=== PATIENT | male | born 1970 | race Caucasian/White ===

== ENCOUNTER 2023-11-13 13:20 | Inpatient (IN) | payer OTHER, SELFPAY ==
[2023-11-13] VITALS (12 sets, daily range): BP systolic 121–146; BP diastolic 68–100; BMI 34.1
[2023-11-13 07:35] LABS: % Basophils 0.9 % (0-2); % Eosinophils 4.4 % (0-6); % Monocytes 7.7 % (1.7-9.3); Absolute Basophils 0.1 10^3/uL (0-0.2); Absolute Eosinophils 0.6 10^3/uL (0-0.7); Absolute Immature Granulocytes 0.1 10^3/uL (0-0.05); Absolute Lymphocytes 2.2 10^3/uL (1.2-3.4); Absolute Neutrophils 8.5 10^3/uL (1.4-6.5); Hematocrit 35.2 % (39.0-52.0); Hemoglobin 11.8 g/dL (13.0-18.0); Mean Corp Hgb Conc. 33.5 g/dL (33.0-37.0); Mean Corpuscular Hgb 26.4 pg (27.0-31.0); Mean Corpuscular Volume 78.7 fL (80.0-94.0); Nucleated Red Blood Cells % 0 % (-); Platelet Count 540 10^3/uL (130-400); Red Blood Cell Count 4.47 10^6/uL (4.70-6.10); Red Cell Dist. Width 12.3 % (11.5-14.5); White Blood Cell Count 12.5 10^3/uL (4.8-10.8)
[2023-11-13 08:07] LABS: ALT (SGPT) 17 U/L (0-50); AST (SGOT) 17 U/L (17-59); Alkaline Phosphatase 124 U/L (38-126); Blood Urea Nitrogen 28 mg/dl (9-20); Calcium 9.5 mg/dl (8.4-10.2); Carbon Dioxide 21 mmol/L (22-30); Chloride 96 mmol/L (98-107); Glucose 563 mg/dl (70-99); Potassium 4.5 mmol/L (3.5-5.1); Sodium 129 mmol/L (135-145); Total Bilirubin 0.8 mg/dl (0.2-1.3); Total Protein 7.5 g/dl (6.3-8.2); eGFR > 60.00
--- NOTE | 2023-11-13 09:00 | ED.GENMED ---
History of Present Illness
General
Chief Complaint: Skin Problem
Source: patient
Time Seen by Provider: 11/13/23 08:45
Travel History
Have you had any contact with someone who has COVID-19?: No
Do you have any symptoms of coronavirus? Fever > 100 degrees, chills, cough, shortness of breath, sore throat, loss of taste or smell, muscle aches, or headache?: No
History of Present Illness
History of Present Illness:
53-year-old male with past medical history of hypertension, hyperlipidemia, insulin-dependent diabetes, diabetic neuropathy presenting to the emergency department for evaluation of a right foot infection that he states started last week, notes that
due to loss of his job and insurance he has not been able to most of his medications that he knows he should be taking but states he had limited funds to pay for these medications. States that over the last week he started to feel generally unwell
noting discharge and erythema over the foot but notes due to neuropathy he is not having much pain. He admits to polyuria and polydipsia. Denies any known fevers, chills or rigors. States that the foot looks similar to when he needed an
amputation of the great toe around 1 year ago here at this facility.
Past History
Past History
ED Past Medical History: HTN, Hypercholesterolemia and IDDM
ED Past Surgical History: Other
Social History
Tobacco: Non-smoker
Alcohol: Occasional
Drug: None
Personal:
Living: with family
Employment: Employed
Family History
Family History: Other
Review of Systems
Review of Systems
All Other Systems: ROS reviewed and negative except as documented in HPI and ROS
Phy Exam
Physical Exam
Physical Exam:
GENERAL: Alert , in no apparent distress
EYE: Clear conjunctiva
NECK: Supple
ENT: o/p clr, mmm.
CARDIAC: Regular rate and rhythm .
LUNGS: Clear breath sounds bilaterally, no acute respiratory distress, no wheezes/rales/rhonchi
NEUROLOGICAL: Alert and oriented
SKIN: Warm and dry, significant diabetic foot ulcer along the plantar surface of the foot overlying the second distal metatarsal with surrounding erythema, fluctuance, significant malodor and warmth. Erythema extends along the dorsal surface of the
foot overlying the distal second third and fourth metatarsal with skin breakdown. 2-3 eschars over the plantar surface of the foot within the second and fourth metatarsal as well
MUSCULOSKELETAL: Bilateral edema
PSYCH: Normal and appropriate interaction.
Scores
Heart Failure Risk
Heart Failure Risk Score: Not Applicable
Heart Score for Chest Pain Patients
STEMI patient?: Not applicable
Withdrawal Assessment of Alcohol
Withdrawal Assessment Completed?: Not applicable
Course
Orders/Labs/Results
Orders:
Orders
11/13/23 07:21
C-Reactive Protein Urgent
Comment: ADD
Complete Blood Count/With Diff Urgent
Comprehensive Metabolic Panel Urgent
Erythrocyte Sed Rate Urgent
Comment: ADD
11/13/23 08:49
Add On- LAB Urgent
Tests Added?: esr,crp
0.9% Sodium Chloride 1000 ml [Nss] 1,000 ml IV BOLUS
CR Foot - Right Min 3 Views Urgent
Comment:
Reason For Exam: diabetic foot wound
11/13/23 08:54
Insulin Aspart [NOVOLOG vial] 11 units SC NOW STA
11/13/23 08:58
Piperacillin/Tazo 3.375 Gram [Zosyn] 3.375 gram in 50 ml IV NOW
11/13/23 09:28
Hemoglobin A1c [Glycohemoglobin (HgbA1c)] Urgent
Lactic Acid Q4H
Comment: CANCEL 2nd LACTIC ACID IF 1st LACTIC ACID IS LESS THAN 2
Blood Culture Q30M
SHAYLEE Source: Blood/Venous
Specimen Description:
11/13/23 09:38
Blood Culture Q30M
SHAYLEE Source: Blood/Venous
Specimen Description:
11/13/23 11:22
Vancomycin [Vancocin] 2,000 mg 0.9% Sodium Chloride 500 ml [Nss] 500 ml IV NOW
Abnormal Lab Results
11/13/23
07:21
WBC 12.5 H 10^3/uL
(4.8-10.8)
RBC 4.47 L 10^6/uL
(4.70-6.10)
Hgb 11.8 L g/dL
(13.0-18.0)
Hct 35.2 L %
(39.0-52.0)
MCV 78.7 L fL
(80.0-94.0)
MCH 26.4 L pg
(27.0-31.0)
Plt Count 540 H 10^3/uL
(130-400)
Abs Immat Gran (auto) 0.1 H 10^3/uL
(0-0.05)
Absolute Neuts (auto) 8.5 H 10^3/uL
(1.4-6.5)
Absolute Monos (auto) 1.0 H 10^3/uL
(0.1-0.6)
Immature Gran % 1.0 H %
(0-0.5)
Lymphocytes % 18.0 L %
(20.5-51.1)
ESR 131 H mm/hour
(0-20)
Sodium 129 L mmol/L
(135-145)
Chloride 96 L mmol/L
(98-107)
Carbon Dioxide 21 L mmol/L
(22-30)
BUN 28 H mg/dl
(9-20)
Glucose 563 H* mg/dl
(70-99)
C-Reactive Protein 74.80 H mg/L
(0.0-10.00)
11/13/23 07:21
11/13/23 07:21
Vital Signs
Initial and Last Documented VS:
Initial Vital Signs
Temp Pulse Resp BP Pulse Ox
98.4 F 97 16 133/91 97
11/13/23 07:10 11/13/23 07:10 11/13/23 07:10 11/13/23 07:10 11/13/23 07:10
Last Documented Vital Signs
Temp Pulse Resp BP Pulse Ox
98.4 F 98 20 138/92 96
11/13/23 07:10 11/13/23 10:45 11/13/23 10:45 11/13/23 10:00 11/13/23 10:45
MDM/Problems Addressed
Differential Diagnosis Includes:
Diabetic foot ulcer, osteomyelitis, cellulitis, diabetic neuropathy, uncontrolled diabetes
MDM/Problems Addressed:
53-year-old male present emergency department with known diabetic foot ulcer, states worse over the last week. There is significant erythema, edema, fluctuance and warmth. Clinical concern for osteomyelitis. Unfortunately due to patient's lack of
insurance he has not been able take almost all of his medications. Lab work was initiated in triage which reveals a leukocytosis. There is mild hyponatremia which when corrected for hyperglycemia is within normal limits. Patient's glucose
significantly elevated at 563. Will treat hyperglycemia with fluids and insulin. Added on inflammatory markers, lactic acid and blood cultures as well as a hemoglobin A1c for inpatient team. Broad-spectrum vancomycin and Zosyn ordered for
antibiotics. X-ray ordered. Plan to admit with notifying podiatry
Chronic conditions affecting care: DM
Acute Exacerbation and/or Progression of Chronic Illness: DM
*Radiology
Radiology exam reviewed: preliminary read by ED provider (Questionable osteo within the phalanx of the second toe)
*Pulse Oximetry
Patient hypoxic: no
*Critical Care Note
Total Time (30-74mins, 75-104mins- exclusive of procedures): Not Applicable
Data Reviewed
Review of Other/Old Records Reveals: Labs, Records and Discharge Summary
Source: patient and records
Patient Management
Discussion with other providers: Hospitalist and [employer]
Escalation/DeEscalation of care consider admission/obs:
Hospitalist team accepts for continued evaluation and treatment. Podiatry team was notified and will consult on the patient.
ED Attending Note
-
Portions of this chart may have been created with voice recognition software.� Occasional wrong word or��sound alike� substitutions may have occurred due to the inherent limitations of voice recognition software.
Discharge Plan
Departure
Patient Disposition: Admit
Date of Disposition: 11/13/23
Time of Disposition: 09:09
Presentation/result/management discussed w/ accepting MD/DO: Hospitalist
Discharge Problem:
Diabetic foot ulcer with osteomyelitis, Diabetes mellitus with hyperglycemia, Noncompliance with medication regimen
Prescriptions:
No Action
atorvastatin 20 mg Tablet
20 mg PO HS
Patient Comments:
11/13/2023, last filled on 05/09/2023 for 90-day supply.
metformin 1,000 mg Tablet
1,000 mg PO BID
Patient Comments:
11/13/2023, last filled on 05/03/2023 for 90-day supply.
ibuprofen [Advil] 200 mg Tablet
600 mg PO DAILYPRN PRN (Reason: mild pain)
lisinopril 5 mg Tablet
5 mg PO DAILY
Patient Comments:
11/13/2023, last filled on 05/03/2023 for 90-day supply.
insulin aspart U-100 [Novolog FlexPen U-100 Insulin] 100 unit/mL (3 mL) Insulin Pen
20 unit SC BID
Patient Comments:
11/13/2023, [facility] records are from 06/30/2022 and this med. is not in pharmacy fill data.
Levemir U-100 Insulin 100 unit/mL Solution
40 unit SC BID
Theragen Tablet
1 tab PO DAILY
Interventions
Interventions:
*Risk Screen - Suicide Last Done: 11/13/23 10:23
*General Assessment Last Done: 11/13/23 10:23
*Neglect/Abuse Screening Last Done: 11/13/23 10:23
ED- Fall Risk Assessment Last Done: 11/13/23 10:23
*ED COVID-19 Vaccine History Last Done: 11/13/23 07:10
ED-Skin Assessment Last Done: 11/13/23 10:23
Discharge Date and Time
Print Language: MOROCCAN
[2023-11-13] MEDS: NOVOLOG vial 11 UNITS SC (09:40)
[2023-11-13] MEDS: NSS 1000 IV (09:40)
[2023-11-13] MEDS: ZOSYN 50 IV ×2 (09:40→18:56)
[2023-11-13 10:05] LABS: Lactic Acid 1.3 mmol/L (0.7-2.0)
--- NOTE | 2023-11-13 10:06 | PHANOTE ---
11/13/2023, med rec tech, spoke to pt. to obtain their med. history; pt. has filled many of his prescriptions in April 2023 for 90-day supplies and [facility] records are from 06/30/2022; pt. states to be taking Novolog Flexpen Insulin 20 units BID but
I was unable to confirm this med. as it is not in pharmacy fill and [facility] records are outdated.
[2023-11-13 11:24] LABS: Erythrocyte Sed Rate 131 mm/hour (0-20)
[2023-11-13] MEDS: VANCOCIN 540 MG IV (11:34)
[2023-11-13 12:16] LABS: Glycohemoglobin (HgbA1c) 16.4 % (4.0-5.6)
--- NOTE | 2023-11-13 13:08 | HPS.HSE ---
Family Physician
-
Family Physician: * NONE
Chief Complaint
-
Right foot infection
History of Present Illness
Patient with a longstanding history of diabetes and prior right big toe amputation from diabetic foot infection presents again with right foot infection.
He has had right foot wound on the plantar aspect for some time/few months but has not been able to get care because of loss of job and insurance. Last Monday he realized he was in trouble with the right foot. He started to have swelling, some
pain now [he has neuropathy and not much pain sensation in both feet]. He also started to have fever and chills with soaking sweats last week. He started to have drainage from his right leg which was odorous.
With the loss of job and insurance he was sparingly using insulin. He was rationing his insulin to last longer . He takes Levemir 40 units twice a day and NovoLog 20 units twice a day.
Medical History
Past Medical History
Past Medical History: Reports Hypercholesterolemia and IDDM; Denies CAD or CVA
Past Surgical History: Reports Other (rt big toe amputation)
Additional Past Surgical History:
rt big toe amputation
Social History
Tobacco: Non-smoker
Alcohol: Occasional
Drug: None
Living: With Family
Family History
Family History: Not pertinent
Allergies / Home Medications
Allergies reflects when Allergies were last updated in [employer].
Home Medications with original date entered in [employer]
Allergy/Medication List:
Allergies
Allergy/AdvReac Type Severity Reaction Status Date / Time
No Known Allergies Allergy Verified 11/13/23 07:12
Home Medications
atorvastatin 20 mg tablet 20 mg PO HS 11/13/23
ibuprofen 200 mg tablet (Advil) 600 mg PO DAILYPRN PRN mild pain 11/13/23
insulin aspart U-100 100 unit/mL (3 mL) subcutaneous pen (Novolog FlexPen U-100 Insulin aspart) 20 unit SC BID 11/13/23
insulin detemir U-100 100 unit/mL subcutaneous solution (Levemir U-100 Insulin) 40 unit SC BID 11/13/23
lisinopril 5 mg tablet 5 mg PO DAILY 11/13/23
metformin 1,000 mg tablet 1,000 mg PO BID 11/13/23
therapeutic multivitamin 1 tab PO DAILY 11/13/23
Review of Systems
-
A 12 point ROS was completed and negative except as noted: Yes
Physical Exam
Vital Signs
Vital Signs
Temp Pulse Resp BP Pulse Ox
98.4 F 98 20 138/92 96
11/13/23 07:10 11/13/23 10:45 11/13/23 10:45 11/13/23 10:00 11/13/23 10:45
Physical Exam
General: No Apparent Distress
HEENT: Moist mucous membranes
Respiratory: Clear
Cardiac: S1/S2 and Regular Rhythm
GI: Soft, Non Tender, Non Distended and Normal Bowel Sounds
Skin: Other (rt foot is swollen and red; open wound on plantar aspect over the medial forefoot . Very malodorous drainage .)
Neuro: AO x 3 and Nonfocal/grossly intact
Psych: Calm
Laboratory Results
-
11/13/23 07:21
11/13/23 07:21
Laboratory Results
Lactic Acid Cancelled 11/13/23 13:00
Total Bilirubin 0.8 mg/dl (0.2-1.3) 11/13/23 07:21
AST 17 U/L (17-59) 11/13/23 07:21
ALT 17 U/L (0-50) 11/13/23 07:21
Alkaline Phosphatase 124 U/L (38-126) 11/13/23 07:21
Data Reviewed
-
Lab Data: Labs Reviewed by me
Impression/Plan
-
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 Concerned about significant soft tissue involvement. Patient also with poor glycemic control with
hemoglobin A1c 16.4.
Admit to hospital.
Obtain an MRI of the foot with contrast.
Start on empirical antibiotics.
Consult ID and cabin man.
Poorly controlled diabetes-hemoglobin A1c 16.4. Patient states he lost insurance about coverage. Restart his home doses of insulin. Start on sliding scale. He states his insurance is kicking in today so he does not need any case management help
for now. Hold metformin. Patient states he is on lisinopril for more kidney protection than hypertension.
Hyperlipidemia-continue with his statins.
[2023-11-13 15:32] LABS: Glucose - Point of Care 336 mg/dl (70-99)
--- NOTE | 2023-11-13 18:24 | CON.MD ---
Consultation - Medical
-
CC/History of Present Illness:
Podiatry consulted for right foot infection
Patient relates a history of diabetes with neuropathy. He underwent a right big toe amputation from diabetic foot infection 06/24/22. He did not follow up with Dr. Kapoor post op due to lack of insurance.
He has had right foot wound on the plantar aspect for several months but has not been able to get care because of loss of job and insurance. He has not been taking insulin as prescribed due to financial difficulty. He states he has been cleaning
it at home but not doing any specific wound care. Last Monday he noticed increased redness, swelling and drainage and odor from the foot. He also had fever, chills and night sweats last week. He presented to the ER today for evaluation
Past Medical History
Past Medical History: Reports Hypercholesterolemia and IDDM; Denies CAD or CVA
Past Surgical History: Reports Other (rt big toe amputation)
Additional Past Surgical History:
rt big toe amputation
Social History
Tobacco: Non-smoker
Alcohol: Occasional
Drug: None
Living: With Family
Family History
Family History: Not pertinent
Allergies
Allergy/AdvReac Type Severity Reaction Status Date / Time
No Known Allergies Allergy Verified 11/13/23 07:12
Home Medications
atorvastatin 20 mg tablet 20 mg PO HS 11/13/23
ibuprofen 200 mg tablet (Advil) 600 mg PO DAILYPRN PRN mild pain 11/13/23
insulin aspart U-100 100 unit/mL (3 mL) subcutaneous pen (Novolog FlexPen U-100 Insulin aspart) 20 unit SC BID 11/13/23
insulin detemir U-100 100 unit/mL subcutaneous solution (Levemir U-100 Insulin) 40 unit SC BID 11/13/23
lisinopril 5 mg tablet 5 mg PO DAILY 11/13/23
metformin 1,000 mg tablet 1,000 mg PO BID 11/13/23
therapeutic multivitamin 1 tab PO DAILY 11/13/23
Vital Signs
Temp Pulse Resp BP Pulse Ox
98.4 F 98 20 138/92 96
11/13/23 07:10 11/13/23 10:45 11/13/23 10:45 11/13/23 10:00 11/13/23 10:45
Physical Exam
Right foot with palpable pulses, CFT WNL. Generalized edema about the forefoot with associated erythema that seems to be localized about the 2nd mpj and extends tot he midfoot. There is a large neurotrophic ulcer in the submet 2 area that is
necrotic. It probes directly tot the 2nd MPJ. There are three wound dorsally at the medial base of the second toe and along the dorsal 2nd metatarsal. All wound are open, fibronecrotic and communicate. purulent and non viable tissue is expressed
from the site. the emphysema visualized on x-ray communicates directly with the open wounds on the dorsal foot.
Xrays: Extensive soft tissue edema and subcutaneous emphysema within the forefoot with subtle cortical irregularities involving the second metatarsal head and proximal second phalanx. Findings aren't definitive but suspicious for underlying
osteomyelitis.
HbA1c = 16.4
WBC = 12.5
Laboratory Results
Lactic Acid Cancelled 11/13/23 13:00
Total Bilirubin 0.8 mg/dl (0.2-1.3) 11/13/23 07:21
AST 17 U/L (17-59) 11/13/23 07:21
ALT 17 U/L (0-50) 11/13/23 07:21
Alkaline Phosphatase 124 U/L (38-126) 11/13/23 07:21
Impression:
Type 2 Diabetes with Neuropathy
Right foot infection with likely osteomyelitis
Plan:
He is evaluated at bedside. Labs and studies evaluated.
A bedside I&D is performed and the wound are flushed and packed with iodoform packing
Wound cultures taken and pending
Plan to begin dakins flush tomorrow
Await results of MRI of the foot with contrast.
Suspect that patient will require a TMA - likelihood of surgery and amputation was discussed with him in detail
Antibiotics given - Vanco/Zosyn
Consult ID
[2023-11-13] MEDS: NOVOLOG FLEXPEN-MODERATE RESISTANCE 7 UNITS SC (18:53)
[2023-11-13 18:54] LABS: Glucose - Point of Care 328 mg/dl (70-99)
[2023-11-13] MEDS: LOVENOX 40 MG SC (18:56)
[2023-11-13] MEDS: ZESTRIL 5 MG PO (18:56)
--- NOTE | 2023-11-13 19:37 | PHA.VAN.IN ---
Assessment
- Assessment
Renal Function: Appears elevated from baseline (06/26/22 BASELINE SCR: 0.9)
Concomitant Antimicrobials: ZOSYN
- Previous Dosing Experience
Previous Regimen: 1500MG IV Q12H
Date of Regimen: 05/11/22
Provided Trough of: 12 PREDICTED
Provided AUC of: 474 PREDICTED
Patient's SCR is: Elevated compared to previous dosing experience (05/11/22 SCR = 0.9)
Patient's weight is: Decreased compared to previous dosing experience (05/11/22 WT = 128.6 KG)
AUC Dosing Plan
- Dosing Variables
Dosing Weight (kg): 117.2
Dosing CrCl (ml/min): 95
Vd coefficient (L/kg): 0.6
- Empiric Dosing
Initial / Loading Dose: 2GM
Maintenance Regimen: 1500MG IV Q12H
Estimated AUC (mcg*h/mL): 545
Estimated Peak (mcg*h/mL): 33.8
Estimated Trough (mcg/ml): 14.1
Estimated Half Life (H): 8.3
Pharmacokinetics Vancomycin I
- -
Patient Age: 53
Patient Sex: Male
Vancomycin Day #: 1
Indication: Skin And Soft Tissue (DIABETIC FOOT )
Requesting Provider: JARRETT
Height / Weight:
Height 6 ft 1 in
Actual Weight 117.2 kg
Pertinent Past Medical History: UNCONTROLLED DM A1C = 16
- Vital Signs / Lab Results
Temp Pulse Resp BP Pulse Ox
99.8 F 104 13 146/92 93
11/13/23 15:31 11/13/23 18:56 11/13/23 18:00 11/13/23 18:56 11/13/23 18:18
Lab Results - Hematology
11/13/23
07:21
WBC 12.5 H
Lab Results - Chemistry
11/13/23
07:21
BUN 28 H
Creatinine 1.2
Albumin 4.0
11/13/23 11/13/23
09:28 13:00
Lactic Acid 1.3 Cancelled
[2023-11-13 21:53] LABS: Glucose - Point of Care 444 mg/dl (70-99)
[2023-11-13] MEDS: LIPITOR 20 MG PO (21:58)
[2023-11-13] MEDS: LEVEMIR 0.400000000000000022 UNITS SC (21:58)
[2023-11-13 22:19] LABS: Glucose 393 mg/dl (70-99)
[2023-11-14] VITALS (7 sets, daily range): BP systolic 111–143; BP diastolic 69–101; BMI 34.0
[2023-11-14] MEDS: ZOSYN 50 IV ×4 (00:26→19:06)
[2023-11-14 05:04] LABS: Hemoglobin 10.7 g/dL (13.0-18.0); Mean Corp Hgb Conc. 34.5 g/dL (33.0-37.0); Mean Corpuscular Hgb 26.8 pg (27.0-31.0); Mean Corpuscular Volume 77.5 fL (80.0-94.0); Mean Platelet Volume 8.5 fL (7.4-10.4); Platelet Count 559 10^3/uL (130-400); Red Cell Dist. Width 12.5 % (11.5-14.5); White Blood Cell Count 10.7 10^3/uL (4.8-10.8)
[2023-11-14 05:22] LABS: Blood Urea Nitrogen 23 mg/dl (9-20); Calcium 9.2 mg/dl (8.4-10.2); Carbon Dioxide 19 mmol/L (22-30); Chloride 101 mmol/L (98-107); Estimated Creatinine Clearance 104 ml/min; Glucose 327 mg/dl (70-99); Potassium 4.5 mmol/L (3.5-5.1); Sodium 132 mmol/L (135-145); eGFR > 60.00
[2023-11-14] MEDS: VANCOCIN 300 ML IV ×2 (07:21→17:31)
[2023-11-14] MEDS: VANCOCIN 300 MG IV ×2 (07:21→17:31)
[2023-11-14] MEDS: ZESTRIL 5 MG PO (08:03)
[2023-11-14] MEDS: THERAGRAN 1 TABLET PO (08:03)
[2023-11-14 08:17] LABS: Glucose - Point of Care 353 mg/dl (70-99)
[2023-11-14] MEDS: NOVOLOG FLEXPEN-MODERATE RESISTANCE 9 UNITS SC (08:19)
[2023-11-14] MEDS: LEVEMIR 0.400000000000000022 UNITS SC ×2 (08:33→21:06)
[2023-11-14] MEDS: DAKIN'S SOLUTION 0.25% 1/2 STRENGTH TOPICAL (09:27)
--- NOTE | 2023-11-14 10:21 | CM ---
CM met with patient in room. CM confirmed that patient's insurance [employer] is active as of 11/12. Patient has had a history of VN with [facility]. Patient does not have a history of SNF and no DME in the home. Patient does NOT have a PCP at this time. CM
offered assistance. Patient stated that he will call his insurance to see who is in network. Patient uses [facility] for medications.
PLAN: Home
--- NOTE | 2023-11-14 10:53 | PHA.VAN.FU ---
Vancomycin Assessment / Plan
- Assessment
Renal Function: Stable
WBC's are: Trending Down
In the past 24 hrs, patient has been: Afebrile
Concomitant Antimicrobials: piperacillin/tazobactam
- Dosing Plan
Continue: Vanc 1500mg Q12H
Dosing Comments: BUN / SCR trending down
- Monitoring Plan
No level(s) ordered at this time: consider levels in next few days
Monitoring Comments: follow renal function
- Follow Up
Pharmacy will continue to follow.
Vancomycin Follow UP
- -
Patient Age: 53
Patient Sex: Male
Vancomycin Day #: 2
Indication: Skin And Soft Tissue
Requesting Provider: Dr. Solorzano
Pertinent Antimicrobial Allergies:
NKDA
Height / Weight:
Height 6 ft 1 in
Actual Weight 117.2 kg
Pertinent Past Medical History: BMI ~34, DM
- Vital Signs / Lab Results
Temp Pulse Resp BP Pulse Ox
99.5 F 89 18 118/69 95
11/13/23 20:18 11/14/23 08:03 11/14/23 08:00 11/14/23 08:03 11/14/23 08:00
Lab Results - Hematology
11/13/23 11/14/23
07:21 04:51
WBC 12.5 H 10.7
Lab Results - Chemistry
11/13/23 11/14/23
07:21 04:51
BUN 28 H 23 H
Creatinine 1.2 1.1
Estimated Creat Clear 104
Albumin 4.0
11/13/23 11/13/23
09:28 13:00
Lactic Acid 1.3 Cancelled
Microbiology Results
11/13/23 09:28 Blood Culture - Preliminary
Blood/Venous No Growth in 24 hours- Final report to follow
11/13/23 09:38 Blood Culture - Preliminary
Blood/Venous No Growth in 24 hours- Final report to follow
11/13/23 19:24 Gram Stain - Preliminary
Foot - Right
[2023-11-14 10:55] LABS: Glucose - Point of Care 277 mg/dl (70-99)
[2023-11-14] MEDS: NOVOLOG FLEXPEN-MODERATE RESISTANCE 5 UNITS SC (11:07)
--- NOTE | 2023-11-14 11:39 | CON.ID ---
Consultation
-
Date/Time Consultation Requested: November 13, 2023, 173
Date/Time Consultation Performed: November 14, 2023, 1141
Requesting Provider: Dr. Terrell Solorzano
Performing Provider: Dr. Rose Marie España
Reason for Consultation: Diabetic foot infection
Chief Complaint / Past History
Chief Complaint
Infected toe wound
History of Present Illness
53 year old male with uncontrolled DM, neuropathy, who is currently noncompliant with meds and medical visits due to loss of insurance. He developed wound on second toe several months ago. Last week he was in [place] and walked a lot. He noted the
2nd toe started to become swollen and red. He had subjective fevers, chills, and sweats. The wound smelled bad. He therefore came to ED 11/12. WBC 12.5. A1c 16.4. MRI shows osteo and abscess of second toe. No other complaints.
Past History
Additional Past Medical History:
DM2
Neuropathy
HTN
HLD
depression
Right great toe amputation
Allergy History:
No Known Allergies Allergy (Verified 11/13/23 07:12)
Medications Reviewed: Yes
Current Antibiotics:
Vancomycin
Zosyn
Social History
Tobacco: Non-Smoker
Alcohol: Occasional
Drug: None
Family History
Family History: Not Pertinent
Review of Systems
Review of Systems
General: Negative Change in Appetite
HEENT: Negative Sinus Problems, Headache or Pharyngitis
Cardiovascular: Negative Chest Pain
Respiratory: Negative Dyspnea or Cough
Gasteroenterology: Other (no diarrhea); Negative Nausea or Vomiting
Genital / Urological: Negative Dysuria or Flank Pain
Endocrine: Negative Weakness
Neurological: Negative Headache or Dizziness
All systems: All other systems were reviewed and were negative
Vital Signs
Temp Pulse Resp BP Pulse Ox
99.5 F 89 18 118/69 95
11/13/23 20:18 11/14/23 08:03 11/14/23 08:00 11/14/23 08:03 11/14/23 08:00
Physical Exam
Physical Exam
Constitutional: No Acute Distress, Comfortable and Obese
Eyes: No Conjunctival Hemorrhage and Sclera Anicteric
Cardiovascular: Regular Rate and S1/S2
Pulmonary: Clear
Gastrointestinal: Soft, Non Tender, Non Distended and Normal Bowel Sounds
Wound: Other (right foot 1+ edema, + erythema forefoot more localized to send toe, medial and plantar wounds with packing in place)
Lab / Diagnostic Study Results
11/14/23 04:51
11/14/23 04:51
Abs Immat Gran (auto) 0.1 10^3/uL (0-0.05) H 11/13/23 07:21
Absolute Neuts (auto) 8.5 10^3/uL (1.4-6.5) H 11/13/23 07:21
Absolute Lymphs (auto) 2.2 10^3/uL (1.2-3.4) 11/13/23 07:21
Absolute Monos (auto) 1.0 10^3/uL (0.1-0.6) H 11/13/23 07:21
Absolute Basos (auto) 0.1 10^3/uL (0-0.2) 11/13/23 07:21
Immature Gran % 1.0 % (0-0.5) H 11/13/23 07:21
Neutrophils % 68.0 % (42.2-75.2) 11/13/23 07:21
Lymphocytes % 18.0 % (20.5-51.1) L 11/13/23 07:21
Monocytes % 7.7 % (1.7-9.3) 11/13/23 07:21
Eosinophils % 4.4 % (0-6) 11/13/23 07:21
Basophils % 0.9 % (0-2) 11/13/23 07:21
ESR 131 mm/hour (0-20) H 11/13/23 07:21
Lactic Acid Cancelled 11/13/23 13:00
C-Reactive Protein 74.80 mg/L (0.0-10.00) H 11/13/23 07:21
Microbiology Results
Micro:
11/13/23 09:28 Blood Culture - Preliminary
Blood/Venous No Growth in 24 hours- Final report to follow
11/13/23 09:38 Blood Culture - Preliminary
Blood/Venous No Growth in 24 hours- Final report to follow
11/13/23 19:24 Wound Culture - Pending
Foot - Right Gram Stain - Preliminary
11/14/23 MRI RLE: As noted on the x-ray there is abnormal signal intensity within the shaft and head of the second metatarsal, proximal and middle phalanx and minimal in the distal phalanx of the second toe consistent with osteomyelitis. There is
significant irregular fluid collection from the plantar surface along the second metatarsal to the dorsum of the foot consistent with abscess formation and open wound clinically.
Assessment / Plan
# Right second toe cellulitis, osteomyelitis, and abscess
# Uncontrolled DM A1c 16.4
- For toe amputation as per Podiatry.
-Continue Vancomycin and Zosyn for now.
-Needs tight glucose control.
--- NOTE | 2023-11-14 12:30 | W.PN.HOSP.TC ---
Today's Communication/Plan
-
Continue with antibiotics.
Add nutritional NovoLog insulin
Await further input from patient care specialist about surgery
Assessment / Plan
Assessment / Plan
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 Concerned about significant soft tissue involvement. Patient also with poor glycemic control with
hemoglobin A1c 16.4.
Foot imagin including xray and MRI -As noted on the x-ray there is abnormal signal intensity within the shaft and head of the second metatarsal, proximal and middle phalanx and minimal in the distal phalanx of the second toe consistent with
osteomyelitis.
There is significant irregular fluid collection from the plantar surface along the second metatarsal to the dorsum of the foot consistent with abscess formation and open wound clinically.
CW empirical antibiotics. Follow culture data.
surgical treatment per podiatry. Await ID input.
Poorly controlled diabetes-hemoglobin A1c 16.4. Patient states he lost insurance about coverage. Restart his home doses of insulin. Start on sliding scale. He states his insurance is kicking in today so he does not need any case management help
for now. Hold metformin. Patient states he is on lisinopril for more kidney protection than hypertension.
Continue Lantus. Add nutritional NovoLog 10 units with a meal and continue sliding scale insulin.
Hyperlipidemia-continue with his statins.
DW Radiologist about MRI findings.
Anticipated Discharge: > 48 hours
Subjective/Interval History
-
Date of Service: November 14, 2023
Starting to feel well in general. No further chills, sweats. No fevers.
Objective Data
-
Labs:
Laboratory Results
11/14/23
04:51
WBC 10.7
Hgb 10.7 L
Hct 31.0 L
Plt Count 559 H
Sodium 132 L
Potassium 4.5
Chloride 101
Carbon Dioxide 19 L
BUN 23 H
Creatinine 1.1
Glucose 327 H
Calcium 9.2
Vital Signs:
Vital Signs
Temp Pulse Resp BP Pulse Ox
99.5 F 89 18 118/69 95
11/13/23 20:18 11/14/23 08:03 11/14/23 08:00 11/14/23 08:03 11/14/23 08:00
Review of Systems
-
Respiratory: Denies Trouble Breathing
Cardiac: Denies Chest Pain
Abdomen/GI: Denies Abdominal Pain, Nausea or Vomiting
Neuro: Denies Dizzy or Headache
Physical Exam
-
General: No Apparent Distress
HEENT: Moist Mucous Membranes
Respiratory: Clear to Auscultation
Cardiac: Regular Rhythm and S1/S2
GI: Soft
Musculoskeletal: Other (Right foot in dressing)
Neuro: AO x 3
Psych: Calm
Data Reviewed
-
Labs: Labs Reviewed by me
--- NOTE | 2023-11-14 12:38 | W.PN.UPDATE ---
Update Note
Progress Note Update
code encounter
[2023-11-14 13:39] LABS: Glucose - Point of Care 367 mg/dl (70-99)
[2023-11-14] MEDS: NOVOLOG FLEXPEN 10 UNITS SC ×2 (14:07→17:30)
--- NOTE | 2023-11-14 16:26 | PTCARENOTE ---
Pt arrived from ED to room 433. Pt admission and assessment done. Pt with no c/o at this time. Pt with wound to right foot recently changed by podiatry. Pt blood sugar upon admission with lunch present is 367. Dr Solorzano notified and insulin order
received. Pt instructed to ring for assistance. Pt for tentative OR 11/16/23.
[2023-11-14 17:14] LABS: Glucose - Point of Care 302 mg/dl (70-99)
[2023-11-14] MEDS: NOVOLOG FLEXPEN-MODERATE RESISTANCE 7 UNITS SC (17:30)
[2023-11-14] MEDS: LOVENOX 40 MG SC (17:31)
--- NOTE | 2023-11-14 20:24 | W.PN.POD ---
Today's Communication
Today's Communication
Right foot infection
Assessment / Plan
-
Type 2 Diabetes Mellitus with neuropathy
Right foot infected ulcers with osteomyelitis of the second ray
The wounds are copiously lavaged with Dakins solution today at bedside and fluid or purulence is expressed and the wound are packed with iodoform gauze.
Continue Vanco/zosyn
MRI is results are reviewed.
Plan for OR - will make npo after breakfast tomorrow for possible OR as add on case tomorrow. will discuss with patient in the morning.
Will order DAVID/PVR to assess healing potential post op
Subjective
Chief Complaint
Right foot infection with osteomyelitis
Subjective
Patient was seen at bedside. Resting comfortably.
Objective
Temp Pulse Resp BP Pulse Ox
98.6 F 90 18 125/78 97
11/14/23 13:28 11/14/23 13:28 11/14/23 13:28 11/14/23 13:28 11/14/23 13:28
11/14/23 04:51
11/14/23 04:51
Vital Signs and Lab results were reviewed.
Physical Exam
Physical Exam
Right foot with palpable pulses, CFT WNL. Generalized edema about the forefoot with associated erythema that seems to be localized about the 2nd mpj and extends to the midfoot. The erythema is less intense. There is a large neurotrophic ulcer in
the submet 2 area that probes directly to the 2nd MPJ and communicates with the dorsal wounds. There are three wounds dorsally at the medial base of the second toe and along the dorsal 2nd metatarsal. All wound are open, fibronecrotic and
communicate. Some purulence is still expressed with removal of packing today but the less then yesterday. Non viable tissue is expressed from the sites. There is less malodor today
MRI result: As noted on the x-ray there is abnormal signal intensity within the shaft and head of the second metatarsal, proximal and middle phalanx and minimal in the distal phalanx of the second toe consistent with osteomyelitis.
There is significant irregular fluid collection from the plantar surface along the second metatarsal to the dorsum of the foot consistent with abscess formation and open wound clinically.
[2023-11-14] MEDS: LIPITOR 20 MG PO (21:07)
[2023-11-14 21:11] LABS: Glucose - Point of Care 260 mg/dl (70-99)
[2023-11-15] VITALS (10 sets, daily range): BP systolic 107–130; BP diastolic 73–81
[2023-11-15] MEDS: ZOSYN 50 IV ×5 (00:51→23:34)
[2023-11-15] MEDS: VANCOCIN 300 ML IV (05:39)
[2023-11-15] MEDS: VANCOCIN 300 MG IV (05:39)
[2023-11-15 07:50] LABS: Glucose - Point of Care 252 mg/dl (70-99)
[2023-11-15 08:12] LABS: Hematocrit 31.8 % (39.0-52.0); Hemoglobin 10.7 g/dL (13.0-18.0); Mean Corp Hgb Conc. 33.6 g/dL (33.0-37.0); Mean Corpuscular Volume 80.3 fL (80.0-94.0); Mean Platelet Volume 8.5 fL (7.4-10.4); Platelet Count 535 10^3/uL (130-400); Red Blood Cell Count 3.96 10^6/uL (4.70-6.10); Red Cell Dist. Width 12.4 % (11.5-14.5); White Blood Cell Count 9.6 10^3/uL (4.8-10.8)
[2023-11-15] MEDS: ZESTRIL 5 MG PO (08:29)
[2023-11-15] MEDS: LEVEMIR 0.400000000000000022 UNITS SC (08:29)
[2023-11-15] MEDS: THERAGRAN 1 TABLET PO (08:29)
[2023-11-15] MEDS: NOVOLOG FLEXPEN 10 UNITS SC (08:30)
[2023-11-15] MEDS: NOVOLOG FLEXPEN-MODERATE RESISTANCE 5 UNITS SC (08:30)
[2023-11-15] MEDS: DAKIN'S SOLUTION 0.25% 1/2 STRENGTH TOPICAL (08:31)
--- NOTE | 2023-11-15 08:54 | W.PN.POD ---
Today's Communication
Today's Communication
Right foot infection/osteomyelitis
Assessment / Plan
-
Type 2 Diabetes Mellitus with neuropathy
Right foot infected ulcers with osteomyelitis of the second ray
The wounds are copiously lavaged with saline today at bedside the wounds are packed
Continue Vanco/zosyn
MRI is results are reviewed & discussed
Surgical consent signed at bedside. All questions/concerns answered. Risks, benefits and complications of surgery discussed. He declined a second opinion. Wishes to proceed with I&D and 2nd ray amputation today.
NPO, Plan for OR later today. will discuss with patient in the morning.
DAVID/PVR to assess healing potential post op
Subjective
Chief Complaint
Right foot infection with second ray osteomyelitis
Subjective
Patient seen at bedside. Awake, alert, No complaints of pain
Objective
Temp Pulse Resp BP Pulse Ox
98.2 F 76 22 112/73 98
11/15/23 07:25 11/15/23 07:25 11/15/23 07:25 11/15/23 07:25 11/15/23 07:25
11/15/23 07:52
Vital Signs and Lab results were reviewed.
Physical Exam
Physical Exam
Physical Exam
Right foot with palpable pulses, CFT WNL. Generalized edema about the forefoot with associated erythema that seems to be localized about the 2nd mpj and extends to the midfoot. The erythema is less intense. There is a large neurotrophic ulcer in
the submet 2 area that probes directly to the 2nd MPJ and communicates with the dorsal wounds. There are three wounds dorsally at the medial base of the second toe and along the dorsal 2nd metatarsal. All wound are open, fibronecrotic and
communicate. Some purulence is still expressed with removal of packing today but the less then yesterday. Non viable tissue is expressed from the sites. There is less malodor today
MRI result: As noted on the x-ray there is abnormal signal intensity within the shaft and head of the second metatarsal, proximal and middle phalanx and minimal in the distal phalanx of the second toe consistent with osteomyelitis.
There is significant irregular fluid collection from the plantar surface along the second metatarsal to the dorsum of the foot consistent with abscess formation and open wound clinically.
[2023-11-15 09:11] LABS: Blood Urea Nitrogen 23 mg/dl (9-20); Calcium 9.5 mg/dl (8.4-10.2); Carbon Dioxide 25 mmol/L (22-30); Chloride 100 mmol/L (98-107); Estimated Creatinine Clearance 95 ml/min; Glucose 219 mg/dl (70-99); Potassium 4.1 mmol/L (3.5-5.1); Sodium 136 mmol/L (135-145); eGFR > 60.00
--- NOTE | 2023-11-15 09:20 | PN.CDI ---
CDI
- -
CDI:
Physician Documentation Request
Admit Date: 11/13/23 13:20
Dear Doctor Rashad,
Patient admitted with diabetic foot wound.
11/13 Hospitalist PN: 'Right diabetic foot infection-patient with chronic plantar wound of the right foot now with malodorous discharge ,swelling and redness of the foot...abnormal signal intensity within the shaft and head of the second metatarsal,
proximal and middle phalanx and minimal in the distal phalanx of the second toe consistent with osteomyelitis.'
Laboratory Tests
11/13/23
07:21
WBC 12.5 H
11/13/23
07:10 11/13/23
11:00 11/13/23
11:45
Pulse 97 98 101
Please clarify which of the following most accurately describes the status of the patient's infection:
Sepsis
- Systemic manifestations of infection, with 2 or more SIRS criteria which include:
- Fever >100.4 degrees F or hypothermia < 96.8 degrees F
- Leukocytosis - WBC > 12,000 or leukopenia - WBC < 4,000 or > 10% bands
- Tachycardia > 90 beats per minute
- Tachypnea - RR > 20 breaths per minute or PaCO2 , 32mmHg
Source: Merck Manual 2013
Localized Infection Only, Without Systemic Illness
Other
Use of terms such as suspected, likely, concern for, or probable (associated with a specific diagnosis that is being evaluated, monitored, or treated as if it exists) are acceptable and can be coded in the inpatient setting, when documented at the
time of discharge.
Thank you,
Jessica Galan RN, BSN
CDI Specialist
Available via [employer] text
Please use your independent medical judgment in providing your response.
[2023-11-15 12:26] LABS: Glucose - Point of Care 249 mg/dl (70-99)
[2023-11-15] MEDS: NOVOLOG FLEXPEN-MODERATE RESISTANCE SC ×2 (12:40→16:58)
[2023-11-15] MEDS: NOVOLOG FLEXPEN SC ×2 (12:40→16:57)
--- NOTE | 2023-11-15 12:49 | CM ---
Chart reviewed and patient is for possible OR today, pillowcase sewer will need to follow for discharge planning needs for patient.
Plan; To follow with patient progress after OR today.
--- NOTE | 2023-11-15 13:29 | W.PN.HOSP.TC ---
Today's Communication/Plan
-
OR today
Assessment / Plan
Assessment / Plan
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 Concerned about significant soft tissue involvement.
Strep anginosus bacteremia -one bottle so far .Repeat bcx pending
Patient also with poor glycemic control with hemoglobin A1c 16.4.
Foot imaging including xray and MRI -As noted on the x-ray there is abnormal signal intensity within the shaft and head of the second metatarsal, proximal and middle phalanx and minimal in the distal phalanx of the second toe consistent with
osteomyelitis.
There is significant irregular fluid collection from the plantar surface along the second metatarsal to the dorsum of the foot consistent with abscess formation and open wound clinically.
CW antibiotics per ID.
OR planned for today
Arterial US pending.
Pre op cardiac eval - pt with no hx of CAD. Hard to assess functional status due to his foot issues. Clinical risk factors-1 that is diabetes. EKG on admission without any acute ST-T changes. Patient deemed a low risk for cardiovascular event.
Further testing would not change the risk. Continue with OR as planned.
Poorly controlled diabetes-hemoglobin A1c 16.4. Patient states he lost insurance about coverage. Restart his home doses of insulin. Start on sliding scale. He states his insurance is kicking in today so he does not need any case management help
for now. Hold metformin. Patient states he is on lisinopril for more kidney protection than hypertension.
Continue Lantus. Added nutritional NovoLog 10 units with a meal and continue sliding scale insulin.
Increase Levemir to 45 units twice daily and insulin to 12 units
Hyperlipidemia-continue with his statins.
Anticipated Discharge: > 48 hours
Subjective/Interval History
-
Date of Service: November 15, 2023
No further chills or sweats. No fevers.
Objective Data
-
Labs:
Laboratory Results
11/15/23
07:52
WBC 9.6
Hgb 10.7 L
Hct 31.8 L
Plt Count 535 H
Sodium 136
Potassium 4.1
Chloride 100
Carbon Dioxide 25
BUN 23 H
Creatinine 1.2
Glucose 219 H
Calcium 9.5
Vital Signs:
Vital Signs
Temp Pulse Resp BP Pulse Ox
98.2 F 76 22 112/73 99
11/15/23 07:25 11/15/23 07:25 11/15/23 07:25 11/15/23 07:25 11/15/23 08:30
I&O
11/14/23 11/15/23 11/16/23
06:59 06:59 06:59
Intake Total 350 / 350
Output Total 300 / 300
Balance 350 / 350 -300 / -300
Review of Systems
-
EENT: Denies Sore Throat
Respiratory: Denies Trouble Breathing
Cardiac: Denies Chest Pain
Abdomen/GI: Denies Abdominal Pain, Nausea or Vomiting
Neuro: Denies Dizzy
Physical Exam
-
General: No Apparent Distress
HEENT: Moist Mucous Membranes
Respiratory: Clear to Auscultation
Cardiac: Regular Rhythm and S1/S2
GI: Soft, Nontender, Nondistended and Normal Bowel Sounds
Musculoskeletal: Other (rt foot in dressing)
Neuro: AO x 3
Psych: Calm; Negative Confused or Agitated
Data Reviewed
-
Labs: Labs Reviewed by me
--- NOTE | 2023-11-15 15:06 | W.PN.ID1 ---
Date of Service
Date of Service: November 15, 2023
Today's Communication
Continue abx's.
Assessment / Plan
# Right second toe cellulitis, osteomyelitis, and abscess
# Strep anginosus bacteremia, source from foot
# Uncontrolled DM A1c 16.4
-repeat blood cx's
- For 2nd ray toe amputation as per Podiatry.
-Continue Vancomycin and Zosyn for now.
-Needs tight glucose control.
#Additional Past Medical History:
DM2
Neuropathy
HTN
HLD
depression
Right great toe amputation
Chief Complaint
-: Other (foot osteo)
Subjective / Review of Systems
Feeling better. To OR this afternoon.
Vital Signs / Physical Exam
Vital Signs
Vital Signs
Temp Pulse Resp BP Pulse Ox
98.2 F 76 22 112/73 99
11/15/23 07:25 11/15/23 07:25 11/15/23 07:25 11/15/23 07:25 11/15/23 08:30
Physical Exam
Constitutional: No Acute Distress and Obese
Cardiovascular: Regular Rate and S1/S2
Pulmonary: Clear
Gastrointestinal: Soft, Non Tender and Non Distended
Wound: Other (right foot dressing dry)
Objective Data
Lab Data
Lab Results
11/15/23 07:52
11/15/23 07:52
ESR 131 mm/hour (0-20) H 11/13/23 07:21
Estimated Creat Clear 95 ml/min 11/15/23 07:52
Lactic Acid Cancelled 11/13/23 13:00
Total Bilirubin 0.8 mg/dl (0.2-1.3) 11/13/23 07:21
AST 17 U/L (17-59) 11/13/23 07:21
ALT 17 U/L (0-50) 11/13/23 07:21
Alkaline Phosphatase 124 U/L (38-126) 11/13/23 07:21
C-Reactive Protein 74.80 mg/L (0.0-10.00) H 11/13/23 07:21
Most recent labs reviewed.
Micro Results:
11/13/23 19:24 Wound Culture - Final
Foot - Right Gram Stain - Final
11/13/23 09:38 Blood Culture - Preliminary
Blood/Venous Streptococcus anginosus
Gram Stain - Preliminary
11/15/23 09:45 Blood Culture - Pending
Blood/Venous
11/15/23 10:09 Blood Culture - Pending
Blood/Venous
11/13/23 09:28 Blood Culture - Preliminary
Blood/Venous No Growth in 48 hours- Final report to follow
11/14/23 MRI RLE: As noted on the x-ray there is abnormal signal intensity within the shaft and head of the second metatarsal, proximal and middle phalanx and minimal in the distal phalanx of the second toe consistent with osteomyelitis. There is
significant irregular fluid collection from the plantar surface along the second metatarsal to the dorsum of the foot consistent with abscess formation and open wound clinically.
--- NOTE | 2023-11-15 15:50 | PHA.VAN.FU ---
Vancomycin Assessment / Plan
- Assessment
Renal Function: Stable
WBC's are: WNL
In the past 24 hrs, patient has been: Afebrile
Concomitant Antimicrobials: piperacillin/tazobactam
- Dosing Plan
Continue: Vanc 1500mg Q12H
- Monitoring Plan
Trough Level: 4 05:30
Patient scheduled for OR tonight, will hold off on obtaining peak
However, with SCR wavering and BUN being slightly elevated, will obtain trough in AM to assess for toxicity / if dose adjustment may be required
- Follow Up
Pharmacy will continue to follow.
Vancomycin Follow UP
- -
Patient Age: 53
Patient Sex: Male
Vancomycin Day #: 3
Indication: Skin And Soft Tissue
Requesting Provider: Dr. Solorzano / [facility]
Pertinent Antimicrobial Allergies:
NKDA
Height / Weight:
Height 6 ft 1 in
Actual Weight 116.8 kg
Pertinent Past Medical History: BMI ~34, DM
- Vital Signs / Lab Results
Temp Pulse Resp BP Pulse Ox
97.5 F 74 18 125/75 96
11/15/23 15:00 11/15/23 15:00 11/15/23 15:00 11/15/23 15:00 11/15/23 15:00
Lab Results - Hematology
11/13/23 11/14/23 11/15/23
07:21 04:51 07:52
WBC 12.5 H 10.7 9.6
Lab Results - Chemistry
11/13/23 11/14/23 11/15/23
07:21 04:51 07:52
BUN 28 H 23 H 23 H
Creatinine 1.2 1.1 1.2
Estimated Creat Clear 104 95
Albumin 4.0
11/13/23 11/13/23
09:28 13:00
Lactic Acid 1.3 Cancelled
Microbiology Results
11/13/23 19:24 Wound Culture - Final
Foot - Right Gram Stain - Final
11/13/23 09:38 Blood Culture - Preliminary
Blood/Venous Streptococcus anginosus
Gram Stain - Preliminary
11/13/23 09:28 Blood Culture - Preliminary
Blood/Venous No Growth in 48 hours- Final report to follow
[2023-11-15 16:54] LABS: Glucose - Point of Care 173 mg/dl (70-99)
[2023-11-15] MEDS: LOVENOX SC (17:06)
--- NOTE | 2023-11-15 17:25 | PTCARENOTE ---
11/14- Patient currently receiving Zosyn IV as ordered. Patient being called to OR now. 18:00 Vancomycin tubed to OR as per ANESTHESIOLOGIST PHYSICIAN, and that dose will be administered as ordered in the Operative Suite.
[2023-11-15 18:36] LABS: Glucose - Point of Care 152 mg/dl (70-99)
--- NOTE | 2023-11-15 19:30 | W.PN.UPDATE ---
Update Note
Progress Note Update
He underwent incision and drainage with Right 2nd partial ray amputation. See operative note. Tolerated procedure well. May weightbearing as tolerated in a surgical shoe. Podiatry will change packing tomorrow. continue Vanco/Zosyn. Await final
cultures. Bone culture and path pending.
[2023-11-15 19:32] LABS: Glucose - Point of Care 147 mg/dl (70-99)
[2023-11-15] MEDS: VANCOCIN IV ×2 (20:33)
[2023-11-15] MEDS: TORADOL 15 MG IV (21:10)
[2023-11-15] MEDS: LIPITOR 20 MG PO (21:10)
[2023-11-15] MEDS: LEVEMIR 0.450000000000000011 UNITS SC (21:12)
[2023-11-15 21:43] LABS: Glucose - Point of Care 200 mg/dl (70-99)
[2023-11-16 03:15] VITALS: BP 105/66
[2023-11-16] MEDS: ZOSYN 50 IV ×4 (05:25→22:56)
[2023-11-16 05:49] LABS: Hemoglobin 10.4 g/dL (13.0-18.0); Mean Corp Hgb Conc. 33.5 g/dL (33.0-37.0); Mean Corpuscular Hgb 26.9 pg (27.0-31.0); Mean Corpuscular Volume 80.1 fL (80.0-94.0); Mean Platelet Volume 8.3 fL (7.4-10.4); Platelet Count 535 10^3/uL (130-400); Red Blood Cell Count 3.87 10^6/uL (4.70-6.10); Red Cell Dist. Width 12.6 % (11.5-14.5); White Blood Cell Count 11.8 10^3/uL (4.8-10.8)
[2023-11-16 06:19] LABS: Blood Urea Nitrogen 23 mg/dl (9-20); Calcium 9.2 mg/dl (8.4-10.2); Carbon Dioxide 25 mmol/L (22-30); Chloride 103 mmol/L (98-107); Estimated Creatinine Clearance 67 ml/min; Glucose 212 mg/dl (70-99); Sodium 137 mmol/L (135-145); eGFR 47.61
--- NOTE | 2023-11-16 06:27 | PTCARENOTE ---
AM vanco trough came back at 20. Provider and pharmacy notified. Per pharmacy, AM dose of vanco held and vanco dose to be reevaluated. VSS. Will continue to monitor.
[2023-11-16] MEDS: VANCOCIN IV ×2 (06:34)
[2023-11-16 07:30] VITALS: BP 123/75
[2023-11-16 07:39] LABS: Glucose - Point of Care 191 mg/dl (70-99)
--- NOTE | 2023-11-16 08:30 | PHA.VAN.FU ---
Vancomycin Assessment / Plan
- Assessment
Renal Function: SCR Increasing
WBC's are: Trending Up
In the past 24 hrs, patient has been: Afebrile
Concomitant Antimicrobials: piperacillin/tazobactam
- Assessment - Trough Based Monitoring
Trough Value: 20
Level Today was: Supratherapeutic
Level Comments: drawn ~11.5H after 4th maintenance dose
- Dosing Plan
Adjust Regimen to: dosing by level
Dosing by Level: Hold off on dosing today (AM dose held)
- Monitoring Plan
Random Level: 11/16 0600
- Follow Up
Pharmacy will continue to follow.
Vancomycin Follow UP
- -
Patient Age: 53
Patient Sex: Male
Vancomycin Day #: 4
Indication: Skin And Soft Tissue
Requesting Provider: Dr. Solorzano / [facility]
Pertinent Antimicrobial Allergies:
NKDA
Height / Weight:
Height 6 ft 1 in
Actual Weight 116.8 kg
Pertinent Past Medical History: BMI ~34, DM
- Vital Signs / Lab Results
Temp Pulse Resp BP Pulse Ox
97.9 F 70 18 105/66 97
11/16/23 03:15 11/16/23 03:15 11/16/23 03:15 11/16/23 03:15 11/16/23 03:15
Lab Results - Hematology
11/14/23 11/15/23 11/16/23
04:51 07:52 05:43
WBC 10.7 9.6 11.8 H
Lab Results - Chemistry
11/14/23 11/15/23 11/16/23
04:51 07:52 05:43
BUN 23 H 23 H 23 H
Creatinine 1.1 1.2 1.7 H
Estimated Creat Clear 104 95 67
11/13/23 11/13/23
09:28 13:00
Lactic Acid 1.3 Cancelled
Microbiology Results
11/15/23 19:33 Gram Stain - Preliminary
Toe
11/13/23 19:24 Wound Culture - Final
Foot - Right Gram Stain - Final
11/13/23 09:38 Blood Culture - Preliminary
Blood/Venous Streptococcus anginosus
Gram Stain - Preliminary
11/13/23 09:28 Blood Culture - Preliminary
Blood/Venous No Growth in 48 hours- Final report to follow
Therapeutic Drug Monitoring
Vancomycin Trough 20.0 ug/ml (5-20) 11/16/23 05:43
--- NOTE | 2023-11-16 09:27 | W.PN.POD ---
Today's Communication
Today's Communication
S/P right partial 2nd ray amputation
Assessment / Plan
-
Type 2 Diabetes Mellitus with neuropathy
POD #1- S/P Right foot I&D with partial second ray amputation secondary to Right foot infected ulcers with osteomyelitis
Bandages are changed, packing is removed and sites are lavaged with saline. Areas are packed with 1/2' plain packing. foot bandages with 4x4, ABd and kerlex.
Offload heels on pillows in bed
Weightbear as tolerated in orthowedge shoe. PT consult
Patient will require VNS upon discharge
Continue Vanco/zosyn
Await bone cultures and pathology
Repeat blood cultures pending
DAVID/PVR -are normal and reviewed
Subjective
Chief Complaint
S/P right foot I&D with partial second ray amputation
Subjective
Patient seen at bedside. Awake, alert and oriented. Conversational, denies pain
Objective
Temp Pulse Resp BP Pulse Ox
98.1 F 74 22 123/75 96
11/16/23 07:30 11/16/23 07:30 11/16/23 07:30 11/16/23 07:30 11/16/23 07:30
11/16/23 05:43
11/16/23 05:43
Vital Signs and Lab results were reviewed.
Physical Exam
Physical Exam
Palpable pulses. Bloody strikethrough on the bandages. Surgical incision along the second ray extending plantarly with retention sutures in place. Packing in place. Only bloody drainage expressed from the sites. No erythema today, no maloder,
no purulence. Calves supple, non tender, no pain with compression.
[2023-11-16] MEDS: NOVOLOG FLEXPEN-MODERATE RESISTANCE 1 UNITS SC (09:35)
[2023-11-16] MEDS: ZESTRIL 5 MG PO (09:36)
[2023-11-16] MEDS: THERAGRAN 1 TABLET PO (09:36)
[2023-11-16] MEDS: NOVOLOG FLEXPEN 12 UNITS SC ×3 (09:36→18:30)
[2023-11-16] MEDS: LEVEMIR 0.450000000000000011 UNITS SC ×2 (09:37→22:00)
[2023-11-16] MEDS: DAKIN'S SOLUTION 0.25% 1/2 STRENGTH TOPICAL (10:27)
[2023-11-16 11:53] VITALS: BP 109/65
--- NOTE | 2023-11-16 11:55 | W.PN.HOSP.TC ---
Addendum entered and electronically signed by Terrell Solorzano MD 11/16/23 15:55:
Based on tachycardia and leukocytosis admission the patient had a sepsis present on admission.
Original Note:
Today's Communication/Plan
-
Hold lisinopril. DC Toradol. Follow creatinine.
Follow OR cx.
DC planning
Assessment / Plan
Assessment / Plan
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 Concerned about significant soft tissue involvement.
Foot imaging including xray and MRI -As noted on the x-ray there is abnormal signal intensity within the shaft and head of the second metatarsal, proximal and middle phalanx and minimal in the distal phalanx of the second toe consistent with
osteomyelitis.
There is significant irregular fluid collection from the plantar surface along the second metatarsal to the dorsum of the foot consistent with abscess formation and open wound clinically.
POD #1- S/P Right foot I&D with partial second ray amputation secondary to Right foot infected ulcers with osteomyelitis
Strep anginosus bacteremia -one bottle so far .Repeat bcx neg
OR cx pending.
CW ABX per ID
Poorly controlled diabetes with LE neuropathy-hemoglobin A1c 16.4. Patient states he lost insurance coverage. He states his insurance is kicking in on admission so he does not need any case management help for now. Hold metformin. Patient
states he is on lisinopril for more kidney protection than hypertension.
Continue Lantus. cw nutritional NovoLog with a meal and continue sliding scale insulin.
Improving blood sugars with adjustment in insulin.
LYNDA-postop creatinine elevation noted. Possibly multifactorial including postop state, Toradol, lisinopril. Hold lisinopril DC Toradol. Repeat creatinine in a.m. Check bladder scan.
Hyperlipidemia-continue with his statins.
PT with orthowedge boot
DC planning
Anticipated Discharge: 24 - 48 hours
Subjective/Interval History
-
Date of Service: November 16, 2023
Denies any pain today from the operative site in the foot.
No fever or chills.
Tolerating diet.
Objective Data
-
Labs:
Laboratory Results
11/16/23
05:43
WBC 11.8 H
Hgb 10.4 L
Hct 31.0 L
Plt Count 535 H
Sodium 137
Potassium 4.0
Chloride 103
Carbon Dioxide 25
BUN 23 H
Creatinine 1.7 H
Glucose 212 H
Calcium 9.2
Vital Signs:
Vital Signs
Temp Pulse Resp BP Pulse Ox
98.2 F 79 18 109/65 96
11/16/23 11:53 11/16/23 11:53 11/16/23 11:53 11/16/23 11:53 11/16/23 11:53
I&O
11/15/23 11/16/23 11/17/23
06:59 06:59 06:59
Intake Total 1120 / 1120
Output Total 300 / 300 500 / 500
Balance -300 / -300 620 / 620
Review of Systems
-
EENT: Denies Sore Throat
Respiratory: Denies Trouble Breathing
Cardiac: Denies Chest Pain
Neuro: Denies Dizzy
Physical Exam
-
General: No Apparent Distress
HEENT: Moist Mucous Membranes
Respiratory: Clear to Auscultation
Cardiac: Regular Rhythm and S1/S2
GI: Soft
Musculoskeletal: Other (rt foot in dressing)
Neuro: AO x 3
Data Reviewed
-
Labs: Labs Reviewed by me
--- NOTE | 2023-11-16 11:55 | VNURNOTE ---
Home health liaison met with patient to discuss [facility] services, visit scheduling/frequency, homebound status and pet policy. Patient understands home visits will be 2-3 times a week to assess and teach medical management, perform and teach wound
care. Patient aware a visiting nurse will contact him for start of care within 1-2 days after discharge from . Brochure given with contact information. [facility] Referral completed in care port.
[2023-11-16 12:17] LABS: Glucose - Point of Care 287 mg/dl (70-99)
--- NOTE | 2023-11-16 12:22 | W.PN.ID1 ---
Date of Service
Date of Service: November 16, 2023
Today's Communication
Continue Zosyn
Assessment / Plan
# Right second toe cellulitis, osteomyelitis, and abscess
# Strep anginosus bacteremia, source from foot
# Uncontrolled DM A1c 16.4
-repeat blood cx's pending
- s/p partial R 2nd ray toe amputation 11/15/23.
Bone path, cx pending
-Continue Zosyn for now.
-DC Vancomycin
#Additional Past Medical History:
DM2
Neuropathy
HTN
HLD
depression
Right great toe amputation
Chief Complaint
-: Other (foot osteo)
Subjective / Review of Systems
Feels well.
Vital Signs / Physical Exam
Vital Signs
Vital Signs
Temp Pulse Resp BP Pulse Ox
98.2 F 79 18 109/65 96
11/16/23 11:53 11/16/23 11:53 11/16/23 11:53 11/16/23 11:53 11/16/23 11:53
Physical Exam
Constitutional: No Acute Distress and Comfortable
Cardiovascular: Regular Rate and S1/S2
Pulmonary: Clear
Gastrointestinal: Soft and Non Tender
Wound: Other (right foot dressing dry)
Neurological: AO x 3
Objective Data
Lab Data
Lab Results
11/16/23 05:43
11/16/23 05:43
ESR 131 mm/hour (0-20) H 11/13/23 07:21
Estimated Creat Clear 67 ml/min 11/16/23 05:43
Lactic Acid Cancelled 11/13/23 13:00
Total Bilirubin 0.8 mg/dl (0.2-1.3) 11/13/23 07:21
AST 17 U/L (17-59) 11/13/23 07:21
ALT 17 U/L (0-50) 11/13/23 07:21
Alkaline Phosphatase 124 U/L (38-126) 11/13/23 07:21
C-Reactive Protein 74.80 mg/L (0.0-10.00) H 11/13/23 07:21
Most recent labs reviewed.
Micro Results:
11/13/23 09:38 Blood Culture - Preliminary
Blood/Venous Streptococcus anginosus
Gram Stain - Preliminary
11/15/23 09:45 Blood Culture - Preliminary
Blood/Venous No Growth in 24 hours- Final report to follow
11/15/23 10:09 Blood Culture - Preliminary
Blood/Venous No Growth in 24 hours- Final report to follow
11/13/23 09:28 Blood Culture - Preliminary
Blood/Venous No Growth in 72 hours- Final report to follow
11/15/23 19:33 Tissue Culture - Pending
Toe Gram Stain - Preliminary
11/15/23 19:33 Anaerobic Culture - Pending
Toe
11/13/23 19:24 Wound Culture - Final
Foot - Right Gram Stain - Final
11/14/23 MRI RLE: As noted on the x-ray there is abnormal signal intensity within the shaft and head of the second metatarsal, proximal and middle phalanx and minimal in the distal phalanx of the second toe consistent with osteomyelitis. There is
significant irregular fluid collection from the plantar surface along the second metatarsal to the dorsum of the foot consistent with abscess formation and open wound clinically.
[2023-11-16] MEDS: NOVOLOG FLEXPEN-MODERATE RESISTANCE 5 UNITS SC ×2 (12:46→18:29)
[2023-11-16 13:13] VITALS: BP 113/67; PULSE 80; O2SAT 96
--- NOTE | 2023-11-16 15:46 | CM ---
Chart reviewed and mental health case manager met with patient this am and plan is to home with [facility], for wound care, referral sent to [facility] and contact made with Podiatry who will sign vn orders, patient has agreed to follow up with the [facility]
Residency Clinic, at the [facility], .
Plan; Home with [facility].
[2023-11-16 15:53] VITALS: BP 120/71
[2023-11-16 16:41] LABS: Glucose - Point of Care 266 mg/dl (70-99)
[2023-11-16] MEDS: LOVENOX 40 MG SC (18:30)
[2023-11-16 21:21] LABS: Glucose - Point of Care 225 mg/dl (70-99)
[2023-11-16] MEDS: LIPITOR 20 MG PO (22:55)
[2023-11-16 23:00] VITALS: BP 141/77
[2023-11-17] MEDS: ZOSYN 50 IV ×4 (05:53→23:53)
[2023-11-17 07:13] LABS: Hematocrit 29.4 % (39.0-52.0); Hemoglobin 9.8 g/dL (13.0-18.0); Mean Corp Hgb Conc. 33.3 g/dL (33.0-37.0); Mean Corpuscular Hgb 26.4 pg (27.0-31.0); Mean Corpuscular Volume 79.2 fL (80.0-94.0); Mean Platelet Volume 8.4 fL (7.4-10.4); Platelet Count 524 10^3/uL (130-400); Red Blood Cell Count 3.71 10^6/uL (4.70-6.10); Red Cell Dist. Width 12.4 % (11.5-14.5); White Blood Cell Count 11.3 10^3/uL (4.8-10.8)
[2023-11-17 07:30] VITALS: BP 133/87
[2023-11-17 07:44] LABS: Glucose - Point of Care 111 mg/dl (70-99)
[2023-11-17 07:52] LABS: Blood Urea Nitrogen 23 mg/dl (9-20); Calcium 9.5 mg/dl (8.4-10.2); Carbon Dioxide 25 mmol/L (22-30); Chloride 104 mmol/L (98-107); Estimated Creatinine Clearance 64 ml/min; Glucose 114 mg/dl (70-99); Sodium 139 mmol/L (135-145); eGFR 44.45
[2023-11-17 08:30] VITALS: BP 133/87
[2023-11-17] MEDS: LEVEMIR 0.450000000000000011 UNITS SC ×2 (09:09→22:00)
[2023-11-17] MEDS: NOVOLOG FLEXPEN-MODERATE RESISTANCE SC ×2 (09:13→18:06)
[2023-11-17] MEDS: NOVOLOG FLEXPEN 12 UNITS SC ×3 (09:14→18:05)
[2023-11-17] MEDS: THERAGRAN 1 TABLET PO (09:15)
[2023-11-17 11:50] LABS: Glucose - Point of Care 194 mg/dl (70-99)
--- NOTE | 2023-11-17 11:55 | W.PN.ID1 ---
Date of Service
Date of Service: November 17, 2023
Today's Communication
Continue Zosyn for now.
Assessment / Plan
# Right second toe cellulitis, osteomyelitis, and abscess
# Strep anginosus bacteremia, source from foot
-repeat blood cx's neg to date
- s/p partial R 2nd ray toe amputation 11/15/23.
Bone path pending
Bone cx pending
-Continue Zosyn (d4) for now.
- At time of discharge, can transition to levofloxacin po through 11/27/23.
# LYNDA
-Follow renal function
# Uncontrolled DM A1c 16.4
#Additional Past Medical History:
DM2
Neuropathy
HTN
HLD
depression
Right great toe amputation
Chief Complaint
-: Other (foot osteo)
Subjective / Review of Systems
No complaints.
Vital Signs / Physical Exam
Vital Signs
Vital Signs
Temp Pulse Resp BP Pulse Ox
98.3 F 65 24 133/87 97
11/17/23 07:30 11/17/23 07:30 11/17/23 07:30 11/17/23 07:30 11/17/23 07:30
Physical Exam
Constitutional: No Acute Distress and Comfortable
Gastrointestinal: Soft and Non Tender
Genito-Urinary: Negative Dixon or CVA Tenderness
Neurological: AO x 3
Objective Data
Lab Data
Lab Results
11/17/23 06:57
11/17/23 06:57
ESR 131 mm/hour (0-20) H 11/13/23 07:21
Estimated Creat Clear 64 ml/min 11/17/23 06:57
Lactic Acid Cancelled 11/13/23 13:00
Total Bilirubin 0.8 mg/dl (0.2-1.3) 11/13/23 07:21
AST 17 U/L (17-59) 11/13/23 07:21
ALT 17 U/L (0-50) 11/13/23 07:21
Alkaline Phosphatase 124 U/L (38-126) 11/13/23 07:21
C-Reactive Protein 74.80 mg/L (0.0-10.00) H 11/13/23 07:21
Most recent labs reviewed.
Micro Results:
11/15/23 09:45 Blood Culture - Preliminary
Blood/Venous No Growth in 48 hours- Final report to follow
11/15/23 10:09 Blood Culture - Preliminary
Blood/Venous No Growth in 48 hours- Final report to follow
11/13/23 09:28 Blood Culture - Preliminary
Blood/Venous No Growth in 4 days- Final report to follow
11/15/23 19:33 Tissue Culture - Preliminary
Toe Gram Stain - Preliminary
11/15/23 19:33 Anaerobic Culture - Preliminary
Toe Culture pending. Anaerobic cultures are examined after 3
days incubation. Additional information to follow.
11/13/23 09:38 Blood Culture - Preliminary
Blood/Venous Streptococcus anginosus
Gram Stain - Preliminary
11/13/23 19:24 Wound Culture - Final
Foot - Right Gram Stain - Final
11/14/23 MRI RLE: As noted on the x-ray there is abnormal signal intensity within the shaft and head of the second metatarsal, proximal and middle phalanx and minimal in the distal phalanx of the second toe consistent with osteomyelitis. There is
significant irregular fluid collection from the plantar surface along the second metatarsal to the dorsum of the foot consistent with abscess formation and open wound clinically.
[2023-11-17 12:17] VITALS: BP 121/77; PULSE 76
--- NOTE | 2023-11-17 12:35 | CM ---
Home with VN, podiatry have agreed to write orders temporarily, patient to make an appointment at the Residency Clinic.
Plan; Home with VN.
[2023-11-17] MEDS: DAKIN'S SOLUTION 0.25% 1/2 STRENGTH 473 ML TOPICAL (12:36)
[2023-11-17] MEDS: NOVOLOG FLEXPEN-MODERATE RESISTANCE 1 UNITS SC (12:38)
--- NOTE | 2023-11-17 12:46 | W.PN.HOSP.TC ---
Today's Communication/Plan
-
Follow gallbladder cultures. Continue antibiotics.
Follow creatinine. Check urine lites.
Assessment / Plan
Assessment / Plan
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 Concerned about significant soft tissue involvement.
Foot imaging including xray and MRI -As noted on the x-ray there is abnormal signal intensity within the shaft and head of the second metatarsal, proximal and middle phalanx and minimal in the distal phalanx of the second toe consistent with
osteomyelitis.
There is significant irregular fluid collection from the plantar surface along the second metatarsal to the dorsum of the foot consistent with abscess formation and open wound clinically.
POD #2- S/P Right foot I&D with partial second ray amputation secondary to Right foot infected ulcers with osteomyelitis
Strep anginosus bacteremia -one bottle so far .Repeat bcx neg
OR cx pending.
CW ABX per ID
Poorly controlled diabetes with LE neuropathy-hemoglobin A1c 16.4. Patient states he lost insurance coverage. He states his insurance is kicking in on admission so he does not need any case management help for now. Hold metformin. Patient
states he is on lisinopril for more kidney protection than hypertension.
Continue Lantus. cw nutritional NovoLog with a meal and continue sliding scale insulin.
Improving blood sugars with adjustment in insulin.
LYNDA-postop creatinine elevation noted. Possibly multifactorial including postop state, Toradol, lisinopril. Hold lisinopril DC Toradol. creatinine in a.m and if raising obtain US . Check urine lytes .
Hyperlipidemia-continue with his statins.
PT with orthowedge boot
Anticipated Discharge: 24 - 48 hours
Subjective/Interval History
-
Date of Service: November 17, 2023
Voices no specific complaints.
No fever or chills.
Ambulating with a OrthoWedge shoe.
Denies any dysuria, frequency or retention of urine. Normal kidney stone history.
Objective Data
-
Labs:
Laboratory Results
11/17/23
06:57
WBC 11.3 H
Hgb 9.8 L
Hct 29.4 L
Plt Count 524 H
Sodium 139
Potassium 4.0
Chloride 104
Carbon Dioxide 25
BUN 23 H
Creatinine 1.8 H
Glucose 114 H
Calcium 9.5
Vital Signs:
Vital Signs
Temp Pulse Resp BP Pulse Ox
98.3 F 65 24 133/87 97
11/17/23 07:30 11/17/23 07:30 11/17/23 07:30 11/17/23 07:30 11/17/23 07:30
I&O
11/16/23 11/17/23 11/18/23
06:59 06:59 06:59
Intake Total 1120 / 1120 780 / 780
Output Total 500 / 500 900 / 900
Balance 620 / 620 -120 / -120
Review of Systems
-
Respiratory: Denies Trouble Breathing
Cardiac: Denies Chest Pain
Neuro: Denies Dizzy
Physical Exam
-
General: No Apparent Distress
HEENT: Moist Mucous Membranes
Respiratory: Clear to Auscultation
Cardiac: Regular Rhythm and S1/S2
Musculoskeletal: Other (Rt foot in dressing)
Neuro: AO x 3
Psych: Calm
Data Reviewed
-
Labs: Labs Reviewed by me
[2023-11-17 14:02] LABS: Urine Albumin Trace (Neg - Trace); Urine Bilirubin Negative (Negative); Urine Character Clear (Clear); Urine Color Yellow; Urine Glucose Negative (Negative); Urine Ketone Negative (Negative); Urine Leukocyte Negative (Negative); Urine Nitrite Negative (Negative); Urine Occult Blood 1+ (Negative); Urine Specific Gravity 1.015 (<1.030); Urine Urobilinogen Negative (Neg - 1+)
[2023-11-17 14:06] LABS: Osmolality Urine 414 mOsm/kg (300-900)
[2023-11-17 14:13] LABS: Urine Sodium 80 mmol/L (30-90)
[2023-11-17 14:52] LABS: Urine White Cell 0-2 /HPF (0-5)
[2023-11-17 15:00] VITALS: BP 158/88
[2023-11-17 17:10] LABS: Glucose - Point of Care 121 mg/dl (70-99)
[2023-11-17] MEDS: LOVENOX 40 MG SC (18:06)
--- NOTE | 2023-11-17 18:07 | W.PN.POD ---
Today's Communication
Today's Communication
S/P right partial second ray amputation
Assessment / Plan
-
Type 2 Diabetes Mellitus with neuropathy
POD #2- S/P Right foot I&D with partial second ray amputation secondary to Right foot infected ulcers with osteomyelitis
Bandages are changed, packing is removed and sites are lavaged with saline. Areas are packed with 1/2' plain packing. foot bandages with 4x4, ABd and kerlex.
Offload heels on pillows in bed
Weightbear as tolerated in orthowedge shoe. PT consult
Patient will require VNS upon discharge
Continue Vanco/zosyn
Await bone cultures and pathology
Repeat blood cultures pending
DAVID/PVR -are normal and reviewed
Subjective
Chief Complaint
S/P right partial 2nd ray amputation
Subjective
Patient seen at bedside resting comfortably - no complaints of pain
Objective
Temp Pulse Resp BP Pulse Ox
98.4 F 73 16 158/88 97
11/17/23 15:00 11/17/23 15:00 11/17/23 15:00 11/17/23 15:00 11/17/23 15:00
11/17/23 06:57
11/17/23 06:57
Vital Signs and Lab results were reviewed.
Physical Exam
Physical Exam
Right foot with bloody strikethrough on bandages. No erythema, incision with retention sutures intact. Open areas palntarly and dorsally with packing in place. No purulence expressed. Granulating in nicely. No maloder
[2023-11-17] MEDS: LIPITOR 20 MG PO (21:55)
[2023-11-17 22:16] LABS: Glucose - Point of Care 167 mg/dl (70-99)
[2023-11-17 23:30] VITALS: BP 143/88
[2023-11-18] MEDS: ZOSYN 50 IV ×3 (06:09→17:26)
[2023-11-18 07:00] VITALS: BP 130/76
[2023-11-18 07:07] LABS: Hematocrit 30.9 % (39.0-52.0); Hemoglobin 10.5 g/dL (13.0-18.0); Mean Corpuscular Hgb 26.7 pg (27.0-31.0); Mean Corpuscular Volume 78.6 fL (80.0-94.0); Mean Platelet Volume 8.5 fL (7.4-10.4); Platelet Count 549 10^3/uL (130-400); Red Blood Cell Count 3.93 10^6/uL (4.70-6.10); Red Cell Dist. Width 12.4 % (11.5-14.5); White Blood Cell Count 10.4 10^3/uL (4.8-10.8)
[2023-11-18 07:25] LABS: Glucose - Point of Care 100 mg/dl (70-99)
[2023-11-18 07:32] LABS: Blood Urea Nitrogen 21 mg/dl (9-20); Calcium 9.6 mg/dl (8.4-10.2); Carbon Dioxide 23 mmol/L (22-30); Chloride 106 mmol/L (98-107); Estimated Creatinine Clearance 67 ml/min; Glucose 95 mg/dl (70-99); Potassium 4.1 mmol/L (3.5-5.1); Sodium 139 mmol/L (135-145); eGFR 47.61
[2023-11-18] MEDS: NOVOLOG FLEXPEN-MODERATE RESISTANCE SC ×2 (07:47→12:20)
[2023-11-18] MEDS: NOVOLOG FLEXPEN 12 UNITS SC ×3 (07:48→17:29)
[2023-11-18] MEDS: LEVEMIR 0.450000000000000011 UNITS SC ×2 (07:48→21:00)
[2023-11-18] MEDS: THERAGRAN 1 TABLET PO (07:48)
[2023-11-18] MEDS: DAKIN'S SOLUTION 0.25% 1/2 STRENGTH 473 ML TOPICAL (07:49)
--- NOTE | 2023-11-18 07:51 | W.PN.POD ---
Today's Communication
Today's Communication
S/P right foot I&D with partial second ray amputation
Assessment / Plan
-
Type 2 Diabetes Mellitus with neuropathy
POD #3- S/P Right foot I&D with partial second ray amputation secondary to Right foot infected ulcers with osteomyelitis
Bandages are changed, packing is removed and sites are lavaged with saline. Area dorsally packed with 1/2' plain packing, plnatar foot cover with calcium alginate, foot bandages with 4x4, ABd and kerlex.
Offload heels on pillows in bed
Weightbear as tolerated in orthowedge shoe. PT consult
Patient will require VNS upon discharge
Continue zosyn per ID
Await final bone cultures and pathology
Repeat blood cultures pending
Subjective
Chief Complaint
S/P right foot I&D and partial second ray amputation
Subjective
Patient seen at bedside awake, alert and oriented. No complaints
Objective
Temp Pulse Resp BP Pulse Ox
98.0 F 72 18 143/88 97
11/17/23 23:30 11/17/23 23:30 11/17/23 23:30 11/17/23 23:30 11/17/23 23:30
11/18/23 06:20
11/18/23 06:20
Vital Signs and Lab results were reviewed.
Physical Exam
Physical Exam
Right foot with bloody strikethrough on bandages. No erythema, incision with retention sutures intact. Open areas plantarly and dorsally with packing in place. No purulence expressed, only serosanguinous fluid. Granulating in nicely. No
maloder, erythema is resolved. Significantly less packing required.
[2023-11-18 11:59] LABS: Glucose - Point of Care 145 mg/dl (70-99)
--- NOTE | 2023-11-18 13:16 | W.PN.HOSP.TC ---
Today's Communication/Plan
-
DC once ok from ID standpoint
Assessment / Plan
Assessment / Plan
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 Concerned about significant soft tissue involvement.
Foot imaging including xray and MRI -As noted on the x-ray there is abnormal signal intensity within the shaft and head of the second metatarsal, proximal and middle phalanx and minimal in the distal phalanx of the second toe consistent with
osteomyelitis.
There is significant irregular fluid collection from the plantar surface along the second metatarsal to the dorsum of the foot consistent with abscess formation and open wound clinically.
POD #2- S/P Right foot I&D with partial second ray amputation secondary to Right foot infected ulcers with osteomyelitis
Strep anginosus bacteremia -one bottle so far .Repeat bcx neg
OR cx pending.
CW ABX per ID
Poorly controlled diabetes with LE neuropathy-hemoglobin A1c 16.4. Patient states he lost insurance coverage. He states his insurance is kicking in on admission so he does not need any case management help for now. Hold metformin. Patient
states he is on lisinopril for more kidney protection than hypertension.
Continue Lantus. cw nutritional NovoLog with a meal and continue sliding scale insulin.
Improving blood sugars with adjustment in insulin.
LYNDA-postop creatinine elevation noted. Possibly multifactorial including postop state, Toradol, lisinopril. Hold lisinopril DC Toradol. creatinine improving . urine lytes noted - not prerenal. Mild hematuria noted -asymptomatic - repeat in a
week .
Hyperlipidemia-continue with his statins.
PT with orthowedge boot
Anticipated Discharge: Within 24 hours
Subjective/Interval History
-
Date of Service: November 18, 2023
No new complaints.
No fever chills.
Denies diarrhea.
Denies right foot pain.
Objective Data
-
Labs:
Laboratory Results
11/18/23
06:20
WBC 10.4
Hgb 10.5 L
Hct 30.9 L
Plt Count 549 H
Sodium 139
Potassium 4.1
Chloride 106
Carbon Dioxide 23
BUN 21 H
Creatinine 1.7 H
Glucose 95
Calcium 9.6
Vital Signs:
Vital Signs
Temp Pulse Resp BP Pulse Ox
98.8 F 69 16 130/76 98
11/18/23 07:00 11/18/23 07:00 11/18/23 07:00 11/18/23 07:00 11/18/23 07:00
I&O
11/17/23 11/18/23 11/19/23
06:59 06:59 06:59
Intake Total 780 / 780 1210 / 1210
Output Total 900 / 900
Balance -120 / -120 1210 / 1210
Review of Systems
-
Respiratory: Denies Trouble Breathing
Cardiac: Denies Chest Pain
Genitourinary: Denies Dysuria or Frequency
Neuro: Denies Dizzy
Physical Exam
-
General: No Apparent Distress
HEENT: Moist Mucous Membranes
Respiratory: Clear to Auscultation
Cardiac: Regular Rhythm and S1/S2
GI: Soft
Musculoskeletal: Other (rt foot in dressing)
Neuro: AO x 3
Psych: Calm
Data Reviewed
-
Labs: Labs Reviewed by me
--- NOTE | 2023-11-18 13:22 | W.PN.ID1 ---
Date of Service
Date of Service: November 18, 2023
Today's Communication
Continue Zosyn for now.
Assessment / Plan
# Right second toe cellulitis, osteomyelitis, and abscess
# Strep anginosus bacteremia, source from foot
-repeat blood cx's neg to date
- s/p partial R 2nd ray toe amputation 11/15/23.
Bone path pending
Bone cx: prelim CoNS
-Continue Zosyn (d5) for now.
# LYNDA
-Follow renal function
# Uncontrolled DM A1c 16.4
#Additional Past Medical History:
DM2
Neuropathy
HTN
HLD
depression
Right great toe amputation
Chief Complaint
-: Other (foot osteo)
Subjective / Review of Systems
Doing well.
Vital Signs / Physical Exam
Vital Signs
Vital Signs
Temp Pulse Resp BP Pulse Ox
98.8 F 69 16 130/76 98
11/18/23 07:00 11/18/23 07:00 11/18/23 07:00 11/18/23 07:00 11/18/23 07:00
Physical Exam
Constitutional: Comfortable
Wound: Other (Right foot dressing dry)
Objective Data
Lab Data
Lab Results
11/18/23 06:20
11/18/23 06:20
ESR 131 mm/hour (0-20) H 11/13/23 07:21
Estimated Creat Clear 67 ml/min 11/18/23 06:20
Lactic Acid Cancelled 11/13/23 13:00
Total Bilirubin 0.8 mg/dl (0.2-1.3) 11/13/23 07:21
AST 17 U/L (17-59) 11/13/23 07:21
ALT 17 U/L (0-50) 11/13/23 07:21
Alkaline Phosphatase 124 U/L (38-126) 11/13/23 07:21
C-Reactive Protein 74.80 mg/L (0.0-10.00) H 11/13/23 07:21
Most recent labs reviewed.
Micro Results:
11/15/23 09:45 Blood Culture - Preliminary
Blood/Venous No Growth in 72 hours- Final report to follow
11/15/23 10:09 Blood Culture - Preliminary
Blood/Venous No Growth in 72 hours- Final report to follow
11/15/23 19:33 Anaerobic Culture - Preliminary
Toe Culture pending. Anaerobic cultures are examined after 3
days incubation. Additional information to follow.
11/13/23 09:28 Blood Culture - Final
Blood/Venous No Growth - Final Report
11/15/23 19:33 Tissue Culture - Preliminary
Toe Coagulase neg. staphylococcus
Gram Stain - Preliminary
11/13/23 09:38 Blood Culture - Preliminary
Blood/Venous Streptococcus anginosus
Gram Stain - Preliminary
11/13/23 19:24 Wound Culture - Final
Foot - Right Gram Stain - Final
11/14/23 MRI RLE: As noted on the x-ray there is abnormal signal intensity within the shaft and head of the second metatarsal, proximal and middle phalanx and minimal in the distal phalanx of the second toe consistent with osteomyelitis. There is
significant irregular fluid collection from the plantar surface along the second metatarsal to the dorsum of the foot consistent with abscess formation and open wound clinically.
[2023-11-18 15:00] VITALS: BP 154/95
[2023-11-18 17:12] LABS: Glucose - Point of Care 190 mg/dl (70-99)
[2023-11-18] MEDS: LOVENOX 40 MG SC (17:26)
[2023-11-18] MEDS: NOVOLOG FLEXPEN-MODERATE RESISTANCE 1 UNITS SC (17:30)
[2023-11-18 20:59] LABS: Glucose - Point of Care 231 mg/dl (70-99)
[2023-11-18] MEDS: LIPITOR 20 MG PO (21:00)
[2023-11-18 23:57] VITALS: BP 143/86
[2023-11-19] MEDS: ZOSYN 50 IV ×4 (01:30→17:38)
[2023-11-19] MEDS: FLUSH (NSS) 2 FLUSH IV (01:31)
[2023-11-19 07:00] VITALS: BP 134/82
[2023-11-19 07:00] LABS: Glucose - Point of Care 157 mg/dl (70-99)
--- NOTE | 2023-11-19 08:38 | W.PN.POD ---
Today's Communication
Today's Communication
S/P right partial second ray amputation
Assessment / Plan
-
Type 2 Diabetes Mellitus with neuropathy
POD #4- S/P Right foot I&D with partial second ray amputation secondary to Right foot infected ulcers with osteomyelitis
Strep anginosus bacteremia, source from foot - new blood cultures negative
Bandages are changed, packing is removed and sites are lavaged with saline. Area dorsally packed with alginate packing, plantar foot cover with calcium alginate, foot bandages with 4x4, ABd and kerlex.
Offload heels on pillows in bed
Weightbearing as tolerated in orthowedge shoe. PT consult
Patient will require VNS upon discharge
Continue zosyn per ID
Await final bone cultures and pathology - including proximal margin
Subjective
Chief Complaint
Right foot infection - S/P right partial second ray amputation
Subjective
Patient resting comfortably, no complaints
Objective
Temp Pulse Resp BP Pulse Ox
98.2 F 70 18 134/82 95
11/19/23 07:00 11/19/23 07:00 11/19/23 07:00 11/19/23 07:00 11/19/23 07:00
11/18/23 06:20
11/18/23 06:20
Vital Signs and Lab results were reviewed.
Physical Exam
Physical Exam
Right foot with bloody strikethrough on bandages. No erythema, incision with retention sutures intact. Open areas dorsally with packing in place. No purulence expressed, only serosanguinous fluid. Most of incison is dry, driange only from open
area dorsally. Granulating in nicely. No maloder, erythema is resolved. Significantly less packing required.
[2023-11-19] MEDS: LEVEMIR 0.450000000000000011 UNITS SC ×2 (09:25→21:22)
[2023-11-19] MEDS: NOVOLOG FLEXPEN 12 UNITS SC ×3 (09:26→17:37)
[2023-11-19] MEDS: NOVOLOG FLEXPEN-MODERATE RESISTANCE 1 UNITS SC ×2 (09:26→13:40)
[2023-11-19] MEDS: THERAGRAN 1 TABLET PO (09:26)
[2023-11-19] MEDS: DAKIN'S SOLUTION 0.25% 1/2 STRENGTH TOPICAL (09:27)
[2023-11-19 11:00] VITALS: BP 116/63
[2023-11-19 12:08] LABS: Glucose - Point of Care 180 mg/dl (70-99)
--- NOTE | 2023-11-19 13:09 | W.PN.ID1 ---
Addendum entered and electronically signed by Rose Marie España MD 11/19/23 18:46:
Per hospitalist no plans for DC today due to LYNDA.
Will narrow Zosyn to IV cefazolin for now.
Original Note:
Date of Service
Date of Service: November 19, 2023
Today's Communication
Can transition Zosyn (d6) to levofloxacin 750mg po qd through 11/28/23.
Assessment / Plan
# Right second toe cellulitis, osteomyelitis, and abscess
# Strep anginosus bacteremia, source from foot
-repeat blood cx's neg to date
- s/p partial R 2nd ray toe amputation 11/15/23.
Bone path pending
Bone cx: prelim Staph simulans
-Can transition Zosyn (d6) to levofloxacin 750mg po qd through 11/28/23.
# LYNDA -stable
-Follow renal function
# Uncontrolled DM A1c 16.4
#Additional Past Medical History:
DM2
Neuropathy
HTN
HLD
depression
Right great toe amputation
Chief Complaint
-: Other (foot osteo)
Vital Signs / Physical Exam
Vital Signs
Vital Signs
Temp Pulse Resp BP Pulse Ox
98.2 F 79 18 116/63 100
11/19/23 11:00 11/19/23 11:00 11/19/23 11:00 11/19/23 11:00 11/19/23 11:00
Physical Exam
Constitutional: No Acute Distress and Comfortable
Gastrointestinal: Soft, Non Tender and Non Distended
Wound: Other (Foot dressing dry.)
Neurological: AO x 3
Objective Data
Lab Data
Lab Results
11/18/23 06:20
11/18/23 06:20
ESR 131 mm/hour (0-20) H 11/13/23 07:21
Estimated Creat Clear 67 ml/min 11/18/23 06:20
Lactic Acid Cancelled 11/13/23 13:00
Total Bilirubin 0.8 mg/dl (0.2-1.3) 11/13/23 07:21
AST 17 U/L (17-59) 11/13/23 07:21
ALT 17 U/L (0-50) 11/13/23 07:21
Alkaline Phosphatase 124 U/L (38-126) 11/13/23 07:21
C-Reactive Protein 74.80 mg/L (0.0-10.00) H 11/13/23 07:21
Most recent labs reviewed.
Micro Results:
11/15/23 09:45 Blood Culture - Preliminary
Blood/Venous No Growth in 4 days- Final report to follow
11/15/23 10:09 Blood Culture - Preliminary
Blood/Venous No Growth in 4 days- Final report to follow
11/15/23 19:33 Anaerobic Culture - Preliminary
Toe Culture pending. Anaerobic cultures are examined after 3
days incubation. Additional information to follow.
11/15/23 19:33 Tissue Culture - Preliminary
Toe Staphylococcus simulans
Gram Stain - Preliminary
11/13/23 09:28 Blood Culture - Final
Blood/Venous No Growth - Final Report
11/13/23 09:38 Blood Culture - Preliminary
Blood/Venous Streptococcus anginosus
Gram Stain - Preliminary
11/13/23 19:24 Wound Culture - Final
Foot - Right Gram Stain - Final
11/14/23 MRI RLE: As noted on the x-ray there is abnormal signal intensity within the shaft and head of the second metatarsal, proximal and middle phalanx and minimal in the distal phalanx of the second toe consistent with osteomyelitis. There is
significant irregular fluid collection from the plantar surface along the second metatarsal to the dorsum of the foot consistent with abscess formation and open wound clinically.
Care Review
Plan reviewed with: Physician (Dr. Solorzano)
[2023-11-19 14:12] LABS: Blood Urea Nitrogen 20 mg/dl (9-20); Calcium 10.1 mg/dl (8.4-10.2); Carbon Dioxide 27 mmol/L (22-30); Chloride 100 mmol/L (98-107); Estimated Creatinine Clearance 44 ml/min; Glucose 150 mg/dl (70-99); Potassium 4.1 mmol/L (3.5-5.1); Sodium 134 mmol/L (135-145); eGFR 28.59
--- NOTE | 2023-11-19 14:33 | W.PN.HOSP.TC ---
Today's Communication/Plan
-
Check bladder/renal ultrasound
Start on IV fluids.
Consult nephrology.
Assessment / Plan
Assessment / Plan
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 Concerned about significant soft tissue involvement.
Foot imaging including xray and MRI -As noted on the x-ray there is abnormal signal intensity within the shaft and head of the second metatarsal, proximal and middle phalanx and minimal in the distal phalanx of the second toe consistent with
osteomyelitis.
There is significant irregular fluid collection from the plantar surface along the second metatarsal to the dorsum of the foot consistent with abscess formation and open wound clinically.
POD #2- S/P Right foot I&D with partial second ray amputation secondary to Right foot infected ulcers with osteomyelitis
Strep anginosus bacteremia -one bottle so far .Repeat bcx neg
OR cx staph simulans.
CW ABX per ID -switched to Oral Levaquin
Poorly controlled diabetes with LE neuropathy-hemoglobin A1c 16.4. Patient states he lost insurance coverage. He states his insurance is kicking in on admission so he does not need any case management help for now. Hold metformin. Patient
states he is on lisinopril for more kidney protection than hypertension.
Continue Lantus. cw nutritional NovoLog with a meal and continue sliding scale insulin.
Improved blood sugars with adjustment in insulin.
LYNDA-postop creatinine elevation noted. Possibly multifactorial including postop state, Toradol, lisinopril. Hold lisinopril DCed Toradol. creatinine improving but then jumped today again . urine lytes noted - not prerenal. Mild hematuria noted
-asymptomatic - repeat in a week .
Check metastatic renal ultrasound. [place] of IV fluids .Check wt.
Consult nephrology.
Hyperlipidemia-continue with his statins.
PT with orthowedge boot
DW ID -ok For discharge from their standpoint.
DW Nephro via TT
Total time spent on today's encounter was 52 minutes which included time spent in counseling the patient regarding diagnosis and treatment plan as listed above, goals of care, and symptom management. Case was discussed with nursing staff,
specialists . All labs and imaging personally reviewed by me. Remainder the time spent in detailed review of previous records, lab data, imaging, and other medical provider documentation.
Anticipated Discharge: > 48 hours
Subjective/Interval History
-
Date of Service: November 19, 2023
Voicing no specific complaints.
Denies fever or chills.
Tolerating diet.
No chest pain or shortness of breath.
Denies any dysuria frequency of urine.
No pain from rt foot.
Objective Data
-
Labs:
Laboratory Results
11/19/23
13:42
Sodium 134 L
Potassium 4.1
Chloride 100
Carbon Dioxide 27
BUN 20
Creatinine 2.6 H
Glucose 150 H
Calcium 10.1
Vital Signs:
Vital Signs
Temp Pulse Resp BP Pulse Ox
98.2 F 79 18 116/63 100
11/19/23 11:00 11/19/23 11:00 11/19/23 11:00 11/19/23 11:00 11/19/23 11:00
I&O
11/18/23 11/19/23 11/20/23
06:59 06:59 06:59
Intake Total 1210 / 1210 1805 / 1805
Output Total 175 / 175
Balance 1210 / 1210 1630 / 1630
Review of Systems
-
Constitutional: Denies Fever
EENT: Denies Sore Throat
Respiratory: Denies Cough
Neuro: Denies Dizzy or Headache
Physical Exam
-
General: No Apparent Distress
HEENT: Moist Mucous Membranes
Respiratory: Clear to Auscultation
Cardiac: Regular Rhythm and S1/S2
GI: Soft, Nontender, Nondistended and Normal Bowel Sounds
Musculoskeletal: Other (rt foot in dressing -wound dressing by podiatry today)
Neuro: AO x 3
Psych: Calm
Data Reviewed
-
Labs: Labs Reviewed by me
[2023-11-19 14:43] VITALS: BMI 34.4
[2023-11-19] MEDS: NSS 1000 IV (14:45)
[2023-11-19 15:00] VITALS: BP 137/81
[2023-11-19 17:31] LABS: Glucose - Point of Care 254 mg/dl (70-99)
[2023-11-19] MEDS: NOVOLOG FLEXPEN-MODERATE RESISTANCE 5 UNITS SC (17:37)
[2023-11-19] MEDS: LOVENOX 40 MG SC (17:38)
--- NOTE | 2023-11-19 19:26 | W.CON.NEPH ---
Consultation
-
Date/Time Consultation Requested: 11/19/23 1430
Date/Time Consultation Performed: 11/19/23 1930
Requesting Provider: Terrell Sparks
Performing Provider: Gabby Hammonds
Reason for Consultation: LYNDA
Medical History
-
Chief Complaint: Right Foot infection
History of Present Illness:
53 year old male with uncontrolled IDDM on metformin and high doses of insulin, neuropathy, ?HTN on ACEI, HLD on statin who is currently noncompliant with meds and medical visits due to loss of insurance. He developed wound on second toe several
months ago. Last week he was in [place] and walked a lot with h/o neuropathy and lack of sensation. He noted the 2nd toe started to become swollen and red and the wound smelled bad. He therefore came to ED 11/12. MRI shows osteo and abscess of second
toe. subsequently he underwent right foot I&D and partial 2nd toe ray amputation on 11/14. His cr was at 1.2 on admit and increased to 1.4 on 11/15 and today increased further to 2.6 hence nephrology consult. He received 1 Toradol on 11/14, lisinopril
d/c since 11/16. he was on Zosyn and Vac which changed to Ancef today. Vanc level was at 20 on 11/15. He offers no dysuria or gross hematuria, no h/o K stones. Denies any decrease in volume. No CP or sob. No abd pain or diarrhea. mild nausea this am. No
fever. he is now has insurance from new job and trying to get to see doctors after the discharge.
Past Medical History
DM2
Neuropathy
HTN
HLD
depression
Right great toe amputation
Social History
Tobacco: Non-Smoker
Alcohol: Occasional
Drug: None
Living: With Family
Employment: Employed
Family History
no CKD
mother with colon ca and pancreatic cancer 2009
father of infection 2009
Family History: Not Pertinent
Allergies / Home Medications
Allergy/AdvReac Type Severity Reaction Status Date / Time
No Known Allergies Allergy Verified 11/13/23 07:12
�Medication �Instructions �Recorded �Confirmed �Type
atorvastatin 20 mg tablet 20 mg PO HS High Cholesterol 11/13/23 11/13/23 History
ibuprofen 200 mg tablet (Advil) 600 mg PO DAILYPRN PRN mild pain 11/13/23 11/13/23 History
insulin aspart U-100 100 unit/mL 20 unit SC BID Diabetes 11/13/23 History
(3 mL) subcutaneous pen (Novolog
FlexPen U-100 Insulin aspart)
insulin detemir U-100 100 unit/mL 40 unit SC BID Diabetes 11/13/23 11/13/23 History
subcutaneous solution (Levemir
U-100 Insulin)
lisinopril 5 mg tablet 5 mg PO DAILY Blood Pressure 11/13/23 11/13/23 History
metformin 1,000 mg tablet 1,000 mg PO BID Diabetes 11/13/23 11/13/23 History
therapeutic multivitamin 1 tab PO DAILY Supplement 11/13/23 11/13/23 History
Review of Systems
-
All compete ROS have been inquired and found negative other than stated in HPI
Physical Exam
Vital Signs
Vital Signs
Temp Pulse Resp BP Pulse Ox
99.1 F 84 18 137/81 97
11/19/23 15:00 11/19/23 15:00 11/19/23 15:00 11/19/23 15:00 11/19/23 15:00
Lab Results
WBC 10.4 10^3/uL (4.8-10.8) 11/18/23 06:20
RBC 3.93 10^6/uL (4.70-6.10) L 11/18/23 06:20
Hgb 10.5 g/dL (13.0-18.0) L 04/06/24 06:20
Hct 30.9 % (39.0-52.0) L 11/18/23 06:20
Plt Count 549 10^3/uL (130-400) H 11/18/23 06:20
Sodium 134 mmol/L (135-145) L 11/19/23 13:42
Potassium 4.1 mmol/L (3.5-5.1) 11/19/23 13:42
Chloride 100 mmol/L (98-107) 11/19/23 13:42
Carbon Dioxide 27 mmol/L (22-30) 11/19/23 13:42
BUN 20 mg/dl (9-20) 11/19/23 13:42
Creatinine 2.6 mg/dL (0.7-1.3) H 11/19/23 13:42
eGFR 28.59 11/19/23 13:42
Glucose 150 mg/dl (70-99) H 11/19/23 13:42
Calcium 10.1 mg/dl (8.4-10.2) 11/19/23 13:42
Albumin 4.0 g/dl (3.5-5.0) 11/13/23 07:21
DAVID 43:
IMPRESSION:
RIGHT LOWER EXTREMITY: DAVID within normal limits at 1.19 (prior 1.27). Toe pressures not performed due to the presence of bandages. Arterial duplex examination reveals multiphasic waveforms from the common femoral artery through the popliteal
artery with no focal velocity elevations to suggest significant stenosis. Multiphasic continuous Doppler waveforms are demonstrated in the posterior tibial artery and dorsalis pedis artery.
LEFT LOWER EXTREMITY: DAVID within normal limits at 1.09 (prior 1.38). TBI within normal limits at 0.80 (prior 1.43). Arterial duplex examination reveals multiphasic waveforms from the common femoral artery through the popliteal artery with no focal
velocity elevations to suggest significant stenosis. Multiphasic continuous Doppler waveforms are demonstrated in the posterior tibial artery and dorsalis pedis artery.
42:MRI foot:
IMPRESSION:
As noted on the x-ray there is abnormal signal intensity within the shaft and head of the second metatarsal, proximal and middle phalanx and minimal in the distal phalanx of the second toe consistent with osteomyelitis.
There is significant irregular fluid collection from the plantar surface along the second metatarsal to the dorsum of the foot consistent with abscess formation and open wound clinically.
Physical Exam
General: Awake, Alert, Oriented, AOx3, No Distress and Nontoxic
HEENT: EOMI, Anicteric and Neck Supple
Respiratory: Clear, Normal Excursion and Nonlabored Respirations
Cardiac: S1/S2 and Regular Rate/Rhythm
Abdomen: Soft, Nontender and Nondistended
Musculoskeletal: No Cyanosis and No Edema
Skin: No Rash
Neuro: Nonfocal/Grossly Intact
Psych: Mood/afflect pleasant, Insight/judgement good and Appropriate
Assessment/Plan
-
IMP:
Right diabetic foot infection- second metatarsal, proximal and middle phalanx and distal phalanx of the second toe with osteomyelitis.
S/P Right foot I&D with partial second ray amputation 11/15/23
Strep anginosus bacteremia -one bottle so far
Poorly controlled diabetes with LE neuropathy-hemoglobin A1c 16.4.
LYNDA
Mild micro hematuria noted -asymptomatic
Hyperlipidemia
hyponatremia
PLan:
A/w right foot infection found osteo and s/p surg on 11/14
LYNDA-progressive post op, no hypotension noted
only one dose of Toradol, off ACEI since 11/16
UA with microhematuria, no baseline to compare
repeat UA if still same, send for serologies
check U eosinophils with recent abx use
follow bladder scan and check renal US
Bp stable wiht out meds
ok for IVF as ordered per primary
avoid nephrotoxins, metformin, ACEI
labs in am
d/w pt
Data Reviewed
-
Radiology: Report Reviewed by me
MRI: Report Reviewed by me
Labs: Labs Reviewed by me and Discussed with Patient
[2023-11-19 21:18] LABS: Glucose - Point of Care 137 mg/dl (70-99)
[2023-11-19] MEDS: LIPITOR 20 MG PO (21:22)
[2023-11-19 23:45] VITALS: BP 136/88
[2023-11-20] MEDS: ANCEF 10 IV ×4 (00:23→21:21)
[2023-11-20] MEDS: NSS 1000 IV ×2 (00:32→08:48)
[2023-11-20 01:31] LABS: Urine Albumin Trace (Neg - Trace); Urine Bilirubin Negative (Negative); Urine Character Slightly Cloudy (Clear); Urine Color Amber; Urine Glucose Negative (Negative); Urine Ketone Negative (Negative); Urine Leukocyte Negative (Negative); Urine Nitrite Negative (Negative); Urine Occult Blood 4+ (Negative); Urine Urobilinogen Negative (Neg - 1+)
[2023-11-20 01:58] LABS: Protein/creatinine Ratio 1.5; Urine Protein 60 mg/dl; Urine Sodium 48 mmol/L (30-90)
[2023-11-20 02:14] LABS: Urine Amorphous Seen; Urine Squamous Cell >30 /LPF (Few)
[2023-11-20 02:16] LABS: Urine Bacteria Moderate (Negative)
[2023-11-20 02:19] LABS: Urine Red Blood Cell >100 /HPF (0-2)
[2023-11-20 07:11] LABS: Hematocrit 31.5 % (39.0-52.0); Hemoglobin 10.4 g/dL (13.0-18.0); Mean Corpuscular Hgb 26.7 pg (27.0-31.0); Mean Corpuscular Volume 80.8 fL (80.0-94.0); Mean Platelet Volume 8.6 fL (7.4-10.4); Platelet Count 423 10^3/uL (130-400); Red Cell Dist. Width 12.5 % (11.5-14.5); White Blood Cell Count 15.7 10^3/uL (4.8-10.8)
[2023-11-20 07:22] LABS: Glucose - Point of Care 89 mg/dl (70-99)
[2023-11-20 07:26] VITALS: BP 137/87
[2023-11-20 07:30] LABS: Blood Urea Nitrogen 19 mg/dl (9-20); Calcium 9.7 mg/dl (8.4-10.2); Carbon Dioxide 28 mmol/L (22-30); Chloride 96 mmol/L (98-107); Estimated Creatinine Clearance 46 ml/min; Glucose 85 mg/dl (70-99); Potassium 4.1 mmol/L (3.5-5.1); Sodium 137 mmol/L (135-145); eGFR 29.97
[2023-11-20] MEDS: THERAGRAN 1 TABLET PO (08:51)
[2023-11-20] MEDS: LEVEMIR 0.450000000000000011 UNITS SC ×2 (08:51→21:00)
[2023-11-20] MEDS: NOVOLOG FLEXPEN 12 UNITS SC ×3 (08:51→16:33)
[2023-11-20] MEDS: NOVOLOG FLEXPEN-MODERATE RESISTANCE SC (08:52)
[2023-11-20] MEDS: DAKIN'S SOLUTION 0.25% 1/2 STRENGTH 30 ML TOPICAL (08:53)
--- NOTE | 2023-11-20 09:48 | W.PN.HOSP.TC ---
Today's Communication/Plan
-
DC further IV fluids
Check Urine eosinophils
Check compliments
Follow WBC
Assessment / Plan
Assessment / Plan
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 Concerned about significant soft tissue involvement.
Foot imaging including xray and MRI -As noted on the x-ray there is abnormal signal intensity within the shaft and head of the second metatarsal, proximal and middle phalanx and minimal in the distal phalanx of the second toe consistent with
osteomyelitis.
There is significant irregular fluid collection from the plantar surface along the second metatarsal to the dorsum of the foot consistent with abscess formation and open wound clinically.
POD #2- S/P Right foot I&D with partial second ray amputation secondary to Right foot infected ulcers with osteomyelitis
Strep anginosus bacteremia -one bottle so far .Repeat bcx neg
OR cx staph simulans.
CW ABX per ID -switch to Oral Levaquin on DC per ID.
Raising WBC today note. Afebrile . Follow closely.
Poorly controlled diabetes with LE neuropathy-hemoglobin A1c 16.4. Patient states he lost insurance coverage. He states his insurance is kicking in on admission so he does not need any case management help for now. Hold metformin. Patient
states he is on lisinopril for more kidney protection than hypertension.
Continue Lantus. cw nutritional NovoLog with a meal and continue sliding scale insulin.
Improved blood sugars with adjustment in insulin.
LYNDA-postop creatinine elevation noted. Possibly multifactorial including postop state, Toradol, lisinopril and now suspecting infection related. Hold lisinopril, DCed Toradol. creatinine remains high despite IV fluids . Renal US without
obstruction or stones.Hematuira which is worsening noted . Check serologies per renal.
Renal following
Hyperlipidemia-continue with his statins.
PT with orthowedge boot
Anticipated Discharge: > 48 hours
Subjective/Interval History
-
Date of Service: November 20, 2023
Patient without any complaints again today.
Denies any pain from the right foot. Has history of neuropathy with decreased sensation in the lower extremities.
Denies any hematuria. Denies any dysuria frequency of urine.
No nausea vomiting.
No fever or chills.
Objective Data
-
Labs:
Laboratory Results
11/20/23
05:42
WBC 15.7 H
Hgb 10.4 L
Hct 31.5 L
Plt Count 423 H D
Sodium 137
Potassium 4.1
Chloride 96 L
Carbon Dioxide 28
BUN 19
Creatinine 2.5 H
Glucose 85
Calcium 9.7
Vital Signs:
Vital Signs
Temp Pulse Resp BP Pulse Ox
98.0 F 79 17 137/87 95
11/20/23 07:26 11/20/23 07:26 11/20/23 07:26 11/20/23 07:26 11/20/23 07:26
I&O
11/19/23 11/20/23 11/21/23
06:59 06:59 06:59
Intake Total 1805 / 1805 2335 / 2335
Output Total 175 / 175 1075 / 1075
Balance 1630 / 1630 1260 / 1260
Review of Systems
-
Respiratory: Denies Trouble Breathing
Cardiac: Denies Chest Pain
Abdomen/GI: Denies Abdominal Pain
Neuro: Denies Dizzy or Headache
Physical Exam
-
HEENT: Moist Mucous Membranes
Respiratory: Clear to Auscultation
Cardiac: Regular Rhythm and S1/S2
GI: Soft
Musculoskeletal: Other (rt foot in dressing)
Neuro: AO x 3
Psych: Calm
Data Reviewed
-
Ultrasound: Report Reviewed by me (US renal tract)
Labs: Labs Reviewed by me
[2023-11-20 11:02] LABS: Complement C3 176 mg/dl (88-165)
[2023-11-20 11:16] LABS: Glucose - Point of Care 197 mg/dl (70-99)
[2023-11-20 12:00] VITALS: BP 162/95; PULSE 77
[2023-11-20] MEDS: NOVOLOG FLEXPEN-MODERATE RESISTANCE 1 UNITS SC ×2 (13:22→16:33)
[2023-11-20] MEDS: TYLENOL 650 MG PO (13:32)
[2023-11-20 13:34] LABS: Body Fluid for Eosinophils 1%
--- NOTE | 2023-11-20 14:09 | CM ---
Patient to return to home with [facility], referral sent to [facility].
Plan; Home with [facility].
--- NOTE | 2023-11-20 14:46 | W.PN.NEPH.PH ---
Today's Communication / Plan
-
- sent for serologies
Assessment/Plan
-
IMP:
Right diabetic foot infection- second metatarsal, proximal and middle phalanx and distal phalanx of the second toe with osteomyelitis.
S/P Right foot I&D with partial second ray amputation 11/15/23
Strep anginosus bacteremia -one bottle so far
Poorly controlled diabetes with LE neuropathy-hemoglobin A1c 16.4.
LYNDA
Mild micro hematuria noted -asymptomatic
Hyperlipidemia
hyponatremia
PLan:
A/w right foot infection found osteo and s/p surg on 11/14
LYNDA-progressive post op, no hypotension noted
only one dose of Toradol, off ACEI since 11/16
UA with microhematuria x2, no baseline to compare. will send for serologies
urine eosinophils wnl, c3 high at 176
follow bladder scan and check renal US
Bp stable wiht out meds
ok for IVF as ordered per primary
avoid nephrotoxins, metformin, ACEI
labs in am
d/w pt
-
-
Date of Service: November 20, 2023
CC / HPI / ROS
-
Chief Complaint:
LYNDA, hematuria
History of Present Illness:
R foot infection s/p R foot I&D with partial amputation of digit
LYNDA with worsening microscopic hematuria
Review of Systems:
feeling well post op
Labs
-
Labs:
WBC 15.7 10^3/uL (4.8-10.8) H 11/20/23 05:42
RBC 3.90 10^6/uL (4.70-6.10) L 11/20/23 05:42
Hgb 10.4 g/dL (13.0-18.0) L 11/20/23 05:42
Hct 31.5 % (39.0-52.0) L 11/20/23 05:42
Plt Count 423 10^3/uL (130-400) H D 11/20/23 05:42
Sodium 137 mmol/L (135-145) 11/20/23 05:42
Potassium 4.1 mmol/L (3.5-5.1) 11/20/23 05:42
Chloride 96 mmol/L (98-107) L 11/20/23 05:42
Carbon Dioxide 28 mmol/L (22-30) 11/20/23 05:42
BUN 19 mg/dl (9-20) 11/20/23 05:42
Creatinine 2.5 mg/dL (0.7-1.3) H 11/20/23 05:42
eGFR 29.97 11/20/23 05:42
Glucose 85 mg/dl (70-99) 11/20/23 05:42
Calcium 9.7 mg/dl (8.4-10.2) 11/20/23 05:42
Albumin 4.0 g/dl (3.5-5.0) 11/13/23 07:21
Physical Exam
-
Vital Signs:
Vital Signs
Temp Pulse Resp BP Pulse Ox
98.0 F 79 17 137/87 95
11/20/23 07:26 11/20/23 07:26 11/20/23 07:26 11/20/23 07:26 11/20/23 07:26
Cardiovascular:: Regular rate and rhythm
Respiratory:: Bilateral: CTA
Lung Excursion:: Normal
Abdomen:: Nontender and Soft
Bowel Sounds:: Normal
Extremity Edema:: +1: Left: and None: Right: (wrapped)
Dixon Catheter: No
[2023-11-20 15:12] VITALS: BP 114/76
--- NOTE | 2023-11-20 15:47 | W.PN.ID1 ---
Date of Service
Date of Service: November 20, 2023
Today's Communication
Continue cefazolin
Assessment / Plan
# Right second toe cellulitis, osteomyelitis, and abscess
# Strep anginosus bacteremia, source from foot
-repeat blood cx's neg to date
- s/p partial R 2nd ray toe amputation 11/15/23.
Bone path pending
Bone cx: prelim Staph simulans, oxacillin sensitive. Anaerobic cx GPC
-Currently on cefazolin ([id number])
# LYNDA -
- Nephrology managing
# Uncontrolled DM A1c 16.4
#Additional Past Medical History:
DM2
Neuropathy
HTN
HLD
depression
Right great toe amputation
Chief Complaint
-: Other (foot osteo)
Subjective / Review of Systems
No complaints
Vital Signs / Physical Exam
Vital Signs
Vital Signs
Temp Pulse Resp BP Pulse Ox
98.6 F 92 18 114/76 96
11/20/23 15:12 11/20/23 15:12 11/20/23 15:12 11/20/23 15:12 11/20/23 15:12
Physical Exam
Constitutional: No Acute Distress and Comfortable
Pulmonary: Clear
Gastrointestinal: Soft, Non Tender and Non Distended
Genito-Urinary: Negative CVA Tenderness
Objective Data
Lab Data
Lab Results
11/20/23 05:42
11/20/23 05:42
ESR 131 mm/hour (0-20) H 11/13/23 07:21
Estimated Creat Clear 46 ml/min 11/20/23 05:42
Lactic Acid Cancelled 11/13/23 13:00
Total Bilirubin 0.8 mg/dl (0.2-1.3) 11/13/23 07:21
AST 17 U/L (17-59) 11/13/23 07:21
ALT 17 U/L (0-50) 11/13/23 07:21
Alkaline Phosphatase 124 U/L (38-126) 11/13/23 07:21
C-Reactive Protein 74.80 mg/L (0.0-10.00) H 11/13/23 07:21
Most recent labs reviewed.
Micro Results:
11/13/23 09:38 Blood Culture - Final
Blood/Venous Streptococcus anginosus
Gram Stain - Final
11/15/23 19:33 Anaerobic Culture - Preliminary
Toe Anaerobic gram positive cocci
11/15/23 10:09 Blood Culture - Final
Blood/Venous No Growth - Final Report
11/15/23 09:45 Blood Culture - Final
Blood/Venous No Growth - Final Report
11/15/23 19:33 Tissue Culture - Preliminary
Toe Staphylococcus simulans
Gram Stain - Preliminary
11/13/23 09:28 Blood Culture - Final
Blood/Venous No Growth - Final Report
11/13/23 19:24 Wound Culture - Final
Foot - Right Gram Stain - Final
11/14/23 MRI RLE: As noted on the x-ray there is abnormal signal intensity within the shaft and head of the second metatarsal, proximal and middle phalanx and minimal in the distal phalanx of the second toe consistent with osteomyelitis. There is
significant irregular fluid collection from the plantar surface along the second metatarsal to the dorsum of the foot consistent with abscess formation and open wound clinically.
[2023-11-20 16:26] LABS: Glucose - Point of Care 179 mg/dl (70-99)
[2023-11-20] MEDS: LOVENOX 40 MG SC (16:33)
--- NOTE | 2023-11-20 19:40 | W.PN.POD ---
Today's Communication
Today's Communication
S/P right foot I&D and partial second ray amputation
Assessment / Plan
-
Type 2 Diabetes Mellitus with neuropathy
POD #5- S/P Right foot I&D with partial second ray amputation secondary to Right foot infected ulcers with osteomyelitis
Strep anginosus bacteremia, source from foot - new blood cultures negative
Bandages are changed, packing is removed and sites are lavaged with saline. Area covered with calcium alginate, foot bandages with 4x4, ABd and kerlex.
Offload heels on pillows in bed
Weightbearing as tolerated in orthowedge shoe. PT consult
Patient will require VNS upon discharge
Continue zosyn per ID
Pathology reviewed - proximal margin positive - recommend treating with PICC and 6 weeks of IV antibiotics
Subjective
Chief Complaint
S/P right foot I&D with partial seocnd ray amputation
Subjective
Patient is resting comfortably, offers no complaints of pain
Objective
Temp Pulse Resp BP Pulse Ox
98.6 F 92 18 114/76 96
11/20/23 15:12 11/20/23 15:12 11/20/23 15:12 11/20/23 15:12 11/20/23 15:12
11/20/23 05:42
11/20/23 05:42
Vital Signs and Lab results were reviewed.
Physical Exam
Physical Exam
General: No Apparent Distress and Comfortable
Neuro: AO x 3
Vascular: Capillary Refill Intact and Pedal Hair Intact
Dorsalis Pedis: Intact
Posterior Tibialis: Intact
Right foot with minimal bloody drainage on bandages. No erythema, incision with retention sutures intact. Open areas dorsally with minimal packing in place. No purulence expressed, only serosanguinous fluid. Most of incision is dry, drainage
only from open area dorsally. Granulating in nicely. No malodor, erythema is resolved. No evidence of residual infection at this point.
[2023-11-20 21:11] LABS: Glucose - Point of Care 154 mg/dl (70-99)
[2023-11-20] MEDS: LIPITOR 20 MG PO (21:21)
[2023-11-20 23:37] VITALS: BP 136/85
[2023-11-21] MEDS: ANCEF 10 IV (07:17)
[2023-11-21 07:23] LABS: Glucose - Point of Care 73 mg/dl (70-99)
[2023-11-21 07:30] VITALS: BP 144/84
[2023-11-21 07:43] LABS: Glucose - Point of Care 111 mg/dl (70-99)
[2023-11-21] MEDS: NOVOLOG FLEXPEN 12 UNITS SC ×3 (08:13→17:25)
[2023-11-21] MEDS: NOVOLOG FLEXPEN-MODERATE RESISTANCE SC ×2 (08:13→17:25)
[2023-11-21] MEDS: LEVEMIR 0.450000000000000011 UNITS SC ×2 (08:14→21:38)
[2023-11-21] MEDS: THERAGRAN 1 TABLET PO (08:14)
[2023-11-21] MEDS: DAKIN'S SOLUTION 0.25% 1/2 STRENGTH 5 ML TOPICAL (08:15)
[2023-11-21 08:25] LABS: Hematocrit 32.8 % (39.0-52.0); Hemoglobin 10.6 g/dL (13.0-18.0); Mean Corp Hgb Conc. 32.3 g/dL (33.0-37.0); Mean Corpuscular Hgb 26.5 pg (27.0-31.0); Mean Platelet Volume 8.7 fL (7.4-10.4); Platelet Count 479 10^3/uL (130-400); Red Cell Dist. Width 12.7 % (11.5-14.5); White Blood Cell Count 11.7 10^3/uL (4.8-10.8)
[2023-11-21 09:05] LABS: Blood Urea Nitrogen 18 mg/dl (9-20); Calcium 10.1 mg/dl (8.4-10.2); Carbon Dioxide 28 mmol/L (22-30); Chloride 97 mmol/L (98-107); Estimated Creatinine Clearance 61 ml/min; Glucose 143 mg/dl (70-99); Potassium 4.4 mmol/L (3.5-5.1); Sodium 139 mmol/L (135-145); eGFR 41.66
--- NOTE | 2023-11-21 11:10 | W.PN.ID1 ---
Date of Service
Date of Service: November 21, 2023
Today's Communication
Ceftriaxone x 6 weeks. See below.
Assessment / Plan
# Right second toe cellulitis, osteomyelitis, and abscess
# Strep anginosus bacteremia, source from foot
-repeat blood cx's neg to date
- s/p partial R 2nd ray toe amputation 11/15/23.
Bone path: acute osteo present at margin
Bone cx: Many Strep species, Staph simulans, oxacillin sensitive. Anaerobic cx GPC
- Since has not achieved surgical cure, need 6 weeks of IV abx.
- Narrow cefazolin to ceftriaxone 2g IV q24 (d8 abx) through 12/25/23.
- Infusion sheet submitted to behavioral health case manager and placed in chart.
-Ordered Picc
# LYNDA - improving
- Nephrology managing
# Uncontrolled DM A1c 16.4
#Additional Past Medical History:
DM2
Neuropathy
HTN
HLD
depression
Right great toe amputation
Chief Complaint
-: Other (foot osteo)
Subjective / Review of Systems
No complaints.
Vital Signs / Physical Exam
Vital Signs
Vital Signs
Temp Pulse Resp BP Pulse Ox
97.7 F 67 18 144/84 96
11/21/23 07:30 11/21/23 07:30 11/21/23 07:30 11/21/23 07:30 11/21/23 07:30
Physical Exam
Constitutional: No Acute Distress
Pulmonary: Clear
Gastrointestinal: Soft, Non Tender and Non Distended
Neurological: AO x 3
Objective Data
Lab Data
Lab Results
11/21/23 07:55
11/21/23 07:54
ESR 131 mm/hour (0-20) H 11/13/23 07:21
Estimated Creat Clear 61 ml/min 11/21/23 07:54
Lactic Acid Cancelled 11/13/23 13:00
Total Bilirubin 0.8 mg/dl (0.2-1.3) 11/13/23 07:21
AST 17 U/L (17-59) 11/13/23 07:21
ALT 17 U/L (0-50) 11/13/23 07:21
Alkaline Phosphatase 124 U/L (38-126) 11/13/23 07:21
C-Reactive Protein 74.80 mg/L (0.0-10.00) H 11/13/23 07:21
Most recent labs reviewed.
Micro Results:
11/13/23 09:38 Blood Culture - Final
Blood/Venous Streptococcus anginosus
Gram Stain - Final
11/15/23 19:33 Anaerobic Culture - Preliminary
Toe Anaerobic gram positive cocci
11/15/23 10:09 Blood Culture - Final
Blood/Venous No Growth - Final Report
11/15/23 09:45 Blood Culture - Final
Blood/Venous No Growth - Final Report
11/15/23 19:33 Tissue Culture - Preliminary
Toe Staphylococcus simulans
Gram Stain - Preliminary
11/13/23 09:28 Blood Culture - Final
Blood/Venous No Growth - Final Report
11/13/23 19:24 Wound Culture - Final
Foot - Right Gram Stain - Final
11/14/23 MRI RLE: As noted on the x-ray there is abnormal signal intensity within the shaft and head of the second metatarsal, proximal and middle phalanx and minimal in the distal phalanx of the second toe consistent with osteomyelitis. There is
significant irregular fluid collection from the plantar surface along the second metatarsal to the dorsum of the foot consistent with abscess formation and open wound clinically.
[2023-11-21 11:20] LABS: Glucose - Point of Care 183 mg/dl (70-99)
[2023-11-21] MEDS: ROCEPHIN 2000 MG IV (11:51)
[2023-11-21] MEDS: NOVOLOG FLEXPEN-MODERATE RESISTANCE 1 UNITS SC (11:52)
[2023-11-21] MEDS: STERILE WATER FOR INJECTION 20 ML IV (11:52)
--- NOTE | 2023-11-21 12:04 | W.PN.HOSP.TC ---
Today's Communication/Plan
-
CM to look into home abx
DC planning
Assessment / Plan
Assessment / Plan
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 Concerned about significant soft tissue involvement.
Foot imaging including xray and MRI -As noted on the x-ray there is abnormal signal intensity within the shaft and head of the second metatarsal, proximal and middle phalanx and minimal in the distal phalanx of the second toe consistent with
osteomyelitis.
There is significant irregular fluid collection from the plantar surface along the second metatarsal to the dorsum of the foot consistent with abscess formation and open wound clinically.
POD #2- S/P Right foot I&D with partial second ray amputation secondary to Right foot infected ulcers with osteomyelitis
Strep anginosus bacteremia -one bottle so far .Repeat bcx neg
OR cx staph simulans. Anaerobic cx data pending.
Bone bx positive for OM
Bone cx many strep
ID recommending IV abx at home
Poorly controlled diabetes with LE neuropathy-hemoglobin A1c 16.4. Patient states he lost insurance coverage. He states his insurance is kicking in on admission so he does not need any case management help for now. Hold metformin. Patient
states he is on lisinopril for more kidney protection than hypertension.
Continue Lantus. cw nutritional NovoLog with a meal and continue sliding scale insulin.
Improved blood sugars with adjustment in insulin.
LYNDA-postop creatinine elevation noted. Possibly multifactorial including postop state, Toradol, lisinopril and now suspecting infection related. Hold lisinopril, DCed Toradol. creatinine remains high despite IV fluids . Renal US without
obstruction or stones.Hematuria which is worsening noted .
Urin Eos 1% ; C3 high ;C4 normal. Other serologies pending.
Improving Cr .
DW Renal today - ok for dc from their end and follow BMP as OP
Hyperlipidemia-continue with his statins.
PT with orthowedge boot
Anticipated Discharge: Within 24 hours
Subjective/Interval History
-
Date of Service: November 21, 2023
No new complaints.
Tolerating diet.
No fever or chills.
Urinating well without any complaints.
No right foot pain.
Objective Data
-
Labs:
Laboratory Results
11/21/23 11/21/23
07:54 07:55
WBC 11.7 H
Hgb 10.6 L
Hct 32.8 L
Plt Count 479 H
Sodium 139
Potassium 4.4
Chloride 97 L
Carbon Dioxide 28
BUN 18
Creatinine 1.9 H
Glucose 143 H
Calcium 10.1
Vital Signs:
Vital Signs
Temp Pulse Resp BP Pulse Ox
97.7 F 67 18 144/84 96
11/21/23 07:30 11/21/23 07:30 11/21/23 07:30 11/21/23 07:30 11/21/23 07:30
I&O
11/20/23 11/21/23 11/22/23
06:59 06:59 06:59
Intake Total 2335 / 2335 1965 / 1965
Output Total 1075 / 1075 1300 / 1300
Balance 1260 / 1260 665 / 665
Review of Systems
-
Constitutional: Denies Fever
Respiratory: Denies Trouble Breathing
Cardiac: Denies Chest Pain
Abdomen/GI: Denies Abdominal Pain, Nausea or Vomiting
Genitourinary: Denies Dysuria or Frequency
Neuro: Denies Dizzy
Physical Exam
-
General: No Apparent Distress
HEENT: Moist Mucous Membranes
Respiratory: Clear to Auscultation
Cardiac: Regular Rhythm and S1/S2
GI: Soft, Nontender, Nondistended and Normal Bowel Sounds
Neuro: AO x 3
Psych: Calm; Negative Confused or Agitated
Data Reviewed
-
Labs: Labs Reviewed by me
--- NOTE | 2023-11-21 12:33 | CM ---
Patient will need IV ABX at discharge, plan is to home with ABX and [facility]. Per ID physician patient needs home IV ABX, rn case mgr discussed options for home infusion and patient has selected [facility], referral sent to [facility], rn case mgr
will need to check on patient's insurance to see if he has a benefit for home infusion.
Plan; Home with IV ABX pending approval from insurance and [facility].
--- NOTE | 2023-11-21 14:08 | W.PN.NEPH.PH ---
Today's Communication / Plan
-
- Cr improving
- serologies pending
- likely d/c soon
Assessment/Plan
-
IMP:
Right diabetic foot infection- second metatarsal, proximal and middle phalanx and distal phalanx of the second toe with osteomyelitis.
S/P Right foot I&D with partial second ray amputation 11/15/23
Strep anginosus bacteremia -one bottle so far
Poorly controlled diabetes with LE neuropathy-hemoglobin A1c 16.4.
LYNDA
Mild micro hematuria noted -asymptomatic
Hyperlipidemia
hyponatremia
PLan:
A/w right foot infection found osteo and s/p surg on 11/14
LYNDA-progressive post op, no hypotension noted
Cr peak 2.6, down to 1.9
only one dose of Toradol, off ACEI since 11/16
UA with microhematuria x2, no baseline to compare.
serologies pending
urine eosinophils wnl, c3 high at 176
KUS without hydronephrosis
BP stable without medications
avoid nephrotoxins, metformin, ACEI
in the setting of falling Cr, likely can d/c and follow up with nephrology as an outpatient
will hold off on any biopsy at this time
please obtain labs 1 week after discharge
d/w primary team
-
-
Date of Service: November 21, 2023
CC / HPI / ROS
-
Chief Complaint:
LYNDA, hematuria
History of Present Illness:
R foot infection s/p R foot I&D with partial amputation of digit
LYNDA with worsening microscopic hematuria
Review of Systems:
feeling well post op
Labs
-
Labs:
WBC 11.7 10^3/uL (4.8-10.8) H 11/21/23 07:55
RBC 4.00 10^6/uL (4.70-6.10) L 11/21/23 07:55
Hgb 10.6 g/dL (13.0-18.0) L 11/21/23 07:55
Hct 32.8 % (39.0-52.0) L 11/21/23 07:55
Plt Count 479 10^3/uL (130-400) H 11/21/23 07:55
Sodium 139 mmol/L (135-145) 11/21/23 07:54
Potassium 4.4 mmol/L (3.5-5.1) 11/21/23 07:54
Chloride 97 mmol/L (98-107) L 11/21/23 07:54
Carbon Dioxide 28 mmol/L (22-30) 11/21/23 07:54
BUN 18 mg/dl (9-20) 11/21/23 07:54
Creatinine 1.9 mg/dL (0.7-1.3) H 11/21/23 07:54
eGFR 41.66 11/21/23 07:54
Glucose 143 mg/dl (70-99) H 11/21/23 07:54
Calcium 10.1 mg/dl (8.4-10.2) 11/21/23 07:54
Albumin 4.0 g/dl (3.5-5.0) 11/13/23 07:21
Physical Exam
-
Vital Signs:
Vital Signs
Temp Pulse Resp BP Pulse Ox
97.7 F 67 18 144/84 96
11/21/23 07:30 11/21/23 07:30 11/21/23 07:30 11/21/23 07:30 11/21/23 07:30
Cardiovascular:: Regular rate and rhythm
Respiratory:: Bilateral: CTA
Lung Excursion:: Normal
Abdomen:: Nontender and Soft
Bowel Sounds:: Normal
Extremity Edema:: None: Bilateral: (R foot wrapped)
Dixon Catheter: No
[2023-11-21 14:54] LABS: Glucose - Point of Care 130 mg/dl (70-99)
[2023-11-21 15:00] VITALS: BP 132/79
[2023-11-21] MEDS: LOVENOX 40 MG SC (17:27)
[2023-11-21 21:18] LABS: Glucose - Point of Care 120 mg/dl (70-99)
[2023-11-21] MEDS: LIPITOR 20 MG PO (21:38)
[2023-11-21 23:05] VITALS: BP 124/80
[2023-11-22 05:50] LABS: Blood Urea Nitrogen 19 mg/dl (9-20); Calcium 9.8 mg/dl (8.4-10.2); Carbon Dioxide 30 mmol/L (22-30); Chloride 99 mmol/L (98-107); Estimated Creatinine Clearance 72 ml/min; Glucose 78 mg/dl (70-99); Sodium 138 mmol/L (135-145)
[2023-11-22 07:30] VITALS: BP 124/74
[2023-11-22 07:53] LABS: Glucose - Point of Care 88 mg/dl (70-99)
--- NOTE | 2023-11-22 08:58 | W.PN.POD ---
Today's Communication
Today's Communication
S/P Right partial 2nd ray amputation
Assessment / Plan
-
Type 2 Diabetes Mellitus with neuropathy
POD #7- S/P Right foot I&D with partial second ray amputation secondary to Right foot infected ulcers with osteomyelitis
Strep anginosus bacteremia, source from foot
Bandages are changed, Area covered with calcium alginate, foot bandages with 4x4, ABd and kerlex.
Offload heels on pillows in bed
Weightbearing as tolerated in orthowedge shoe
Patient will require VNS upon discharge - calcium alginate to foot MWF with kerlex and DSD, will discuss with case management
PICC in place for 6 weeks ceftriaxone 2g IV q24 (d8 abx) through 12/25/23.
Pathology reviewed - proximal margin positive - recommend treating with PICC and 6 weeks of IV antibiotics & plan to take patient back as outpatient for revision of 2nd metatarsal stump next week. This was discussed in detail with him. He will see
me monday for first post op visit and planning of outpt revision.
Subjective
Chief Complaint
S/P right partal 2nd ray amputation
Subjective
Patient seen at bedside awake, alert and oriented, no complaints of pain
Objective
Temp Pulse Resp BP Pulse Ox
98.2 F 73 18 124/74 97
11/22/23 07:30 11/22/23 07:30 11/22/23 07:30 11/22/23 07:30 11/22/23 07:30
11/21/23 07:55
11/22/23 04:57
Vital Signs and Lab results were reviewed.
Physical Exam
Physical Exam
General: No Apparent Distress and Comfortable
Neuro: AO x 3
Vascular: Capillary Refill Intact and Pedal Hair Intact
Dorsalis Pedis: Intact
Posterior Tibialis: Intact
Right foot with no bloody drainage on bandages. No erythema, incision with retention sutures intact. Open area dorsally with no purulence expressed, only serosanguinous fluid. Most of incision is dry, drainage only from open area dorsally.
Granulating in nicely. No malodor, erythema is resolved. No evidence of residual infection at this point.
[2023-11-22] MEDS: NOVOLOG FLEXPEN-MODERATE RESISTANCE SC (08:59)
[2023-11-22] MEDS: NOVOLOG FLEXPEN 12 UNITS SC ×2 (08:59→12:16)
[2023-11-22] MEDS: DAKIN'S SOLUTION 0.25% 1/2 STRENGTH 10 ML TOPICAL (09:00)
[2023-11-22] MEDS: LEVEMIR 0.450000000000000011 UNITS SC (09:00)
[2023-11-22] MEDS: THERAGRAN 1 TABLET PO (09:01)
[2023-11-22 11:31] LABS: Glucose - Point of Care 153 mg/dl (70-99)
[2023-11-22] MEDS: NOVOLOG FLEXPEN-MODERATE RESISTANCE 1 UNITS SC (12:17)
[2023-11-22] MEDS: ROCEPHIN 2000 MG IV (12:18)
[2023-11-22] MEDS: STERILE WATER FOR INJECTION 20 ML IV (12:19)
--- NOTE | 2023-11-22 12:48 | CM ---
area safety manager continues to follow with patient progress notes and spoke with [facility] and patient has a $2,000 deductible and $8,000 out of pocket cost, this would mean patient would have a weekly cost of $699.33 per week till
deductible is met and $209.80 per week after deductible. area safety manager reached out to outpatient infusion room and faxed a referral and they will check patient's outpatient infusion benefit as patient is agreeable to going to the infusion room at
[facility] once a day to get his ABX.
Plan; Await final plan for ABX, patient has been [facility] who will follow with patient after discharge.
[2023-11-22 15:00] VITALS: BP 128/82
--- NOTE | 2023-11-22 15:00 | W.PN.ID1 ---
Date of Service
Date of Service: November 22, 2023
Today's Communication
Continue ceftriaxone.
Assessment / Plan
# Right second toe cellulitis, osteomyelitis, and abscess
# Strep anginosus bacteremia, source from foot
-repeat blood cx's neg to date
- s/p partial R 2nd ray toe amputation 11/15/23.
Bone path: acute osteo present at margin
Bone cx: Many Strep species, Staph simulans, oxacillin sensitive. Anaerobic cx GPC
- Since has not achieved surgical cure, need 6 weeks of IV abx.
- Continue ceftriaxone 2g IV q24 (d8 abx) through 12/25/23.
-Per case management, due to high co-pay, pt will go to [facility] daily for IV abx.
- Picc in place.
# LYNDA - improving
- Nephrology managing
# Uncontrolled DM A1c 16.4
#Additional Past Medical History:
DM2
Neuropathy
HTN
HLD
depression
Right great toe amputation
Chief Complaint
-: Other (foot osteo)
Subjective / Review of Systems
Feels well.
Vital Signs / Physical Exam
Vital Signs
Vital Signs
Temp Pulse Resp BP Pulse Ox
98.2 F 73 18 124/74 97
11/22/23 07:30 11/22/23 07:30 11/22/23 07:30 11/22/23 07:30 11/22/23 07:30
Physical Exam
Constitutional: No Acute Distress and Comfortable
Pulmonary: Clear
Gastrointestinal: Soft, Non Tender and Non Distended
Lines: PICC (RUE)
Objective Data
Lab Data
Lab Results
11/21/23 07:55
11/22/23 04:57
ESR 131 mm/hour (0-20) H 11/13/23 07:21
Estimated Creat Clear 72 ml/min 11/22/23 04:57
Lactic Acid Cancelled 11/13/23 13:00
Total Bilirubin 0.8 mg/dl (0.2-1.3) 11/13/23 07:21
AST 17 U/L (17-59) 11/13/23 07:21
ALT 17 U/L (0-50) 11/13/23 07:21
Alkaline Phosphatase 124 U/L (38-126) 11/13/23 07:21
C-Reactive Protein 74.80 mg/L (0.0-10.00) H 11/13/23 07:21
Most recent labs reviewed.
Micro Results:
11/15/23 19:33 Tissue Culture - Final
Toe Staphylococcus simulans
Gram Stain - Final
11/15/23 19:33 Anaerobic Culture - Final
Toe Finegoldia magna
11/13/23 09:38 Blood Culture - Final
Blood/Venous Streptococcus anginosus
Gram Stain - Final
11/15/23 10:09 Blood Culture - Final
Blood/Venous No Growth - Final Report
11/15/23 09:45 Blood Culture - Final
Blood/Venous No Growth - Final Report
11/13/23 09:28 Blood Culture - Final
Blood/Venous No Growth - Final Report
11/13/23 19:24 Wound Culture - Final
Foot - Right Gram Stain - Final
11/14/23 MRI RLE: As noted on the x-ray there is abnormal signal intensity within the shaft and head of the second metatarsal, proximal and middle phalanx and minimal in the distal phalanx of the second toe consistent with osteomyelitis. There is
significant irregular fluid collection from the plantar surface along the second metatarsal to the dorsum of the foot consistent with abscess formation and open wound clinically.
[2023-11-22 15:06] LABS: Glucose - Point of Care 132 mg/dl (70-99)
--- NOTE | 2023-11-22 15:45 | W.DS.TRANS ---
DC Summary - [employer]
-
Discharge Instructions:
Discharge Diagnosis/Procedures Diabetic foot
Diet Low Fat,Low Cholesterol,2 Gram Sodium,Diabetic,
Carb Controlled
Activity As tolerated
Additional Activity Fall precaution
Other Services VN
Wound Care will require visiting nurse- [place] alginate to
foot MWF with kerlex and DSD.
Instructions:
Stand-Alone Forms:
Changes to Home Medications: Yes
Discharge Medications:
DC Medications w/original date entered in [facility]QS
atorvastatin 20 mg tablet 20 mg PO HS High Cholesterol 11/13/23
therapeutic multivitamin 1 tab PO DAILY Supplement 11/13/23
ceftriaxone 2 gram solution for injection 2,000 mg IV Q24H #33 ea 11/22/23
insulin aspart U-100 100 unit/mL (3 mL) subcutaneous pen (Novolog FlexPen U-100 Insulin aspart) 12 unit (0.12 mL) SC BID Diabetes #0 mL 11/22/23
insulin detemir U-100 100 unit/mL subcutaneous solution (Levemir U-100 Insulin) 45 unit (0.45 mL) SC BID Diabetes #0 mL 11/22/23
Home Medication Changes
Lisinopril, metformin and ibuprofen put on hold
Levemir dose increased from 40-45
NovoLog decreased from 20 to 12 units
Pending Results: No
Additional Pending Results:
Physical exam:
General: Awake, alert and oriented x3, not in distress and holds appropriate conversation.
HEENT: No active discharge, ecchymosis or bruising, moist lips, tongue and mucous membrane.
Eyes: No discharge or red conjunctiva, no nystagmus, pupils are reactive and equal
Neck:Supple, no JVD no bruit no goiter.
Respiratory: Normal AP contour and diameter, normal chest wall movement, normal respiratory effort, no respiratory distress,
Lungs: Good air entry bilaterally, no wheezing or rhonchi, no rales or crackles
Heart: S1, S2 regular, normal rate, no added sound.
Gastrointestinal: Positive bowel sounds, soft, nontender, no guarding or rigidity or organomegaly
Musculoskeletal: Dressing on the right forefoot, no active discharge, no chest wall abnormality or tenderness. All joints and extremities have good range of motion, no muscle tenderness or any joint swelling or tenderness.
Extremities: No pitting edema, good peripheral pulses, good range of motion
Skin: Warm and dry, no ulceration, normal color.
Neurological: Awake, alert and oriented x3, speech clear and comprehensive, good muscle tone, normal sensory and motor function
Psychiatric: Normal mood, normal thought and judgment, normal affect,
Condition on discharge: Awake, alert and oriented x3, answer question properly, able to make own decision and take care of activities of daily living, speech clear and comprehensive, continent of the bowel and bladder, ambulate without golf course assistant,
goes home where lives with the family independently.
--- NOTE | 2023-11-22 16:02 | W.PN.NEPH.PH ---
Today's Communication / Plan
-
ok for d/c
Assessment/Plan
-
IMP:
Right diabetic foot infection- second metatarsal, proximal and middle phalanx and distal phalanx of the second toe with osteomyelitis.
S/P Right foot I&D with partial second ray amputation 11/15/23
Strep anginosus bacteremia -one bottle so far
Poorly controlled diabetes with LE neuropathy-hemoglobin A1c 16.4.
LYNDA
Mild micro hematuria noted -asymptomatic
Hyperlipidemia
hyponatremia
PLan:
A/w right foot infection found osteo and s/p surg on 11/14
LYNDA-progressive post op, no hypotension noted
Cr peak 2.6, down to 1.6
only one dose of Toradol, off ACEI since 11/16
UA with microhematuria x2, no baseline to compare.
serologies pending
urine eosinophils wnl, c3 high at 176
KUS without hydronephrosis
BP stable without medications
avoid nephrotoxins, metformin, ACEI
in the setting of falling Cr, likely can d/c and follow up with nephrology as an outpatient
will hold off on any biopsy at this time
please obtain labs 1 week after discharge
-
-
Date of Service: November 22, 2023
CC / HPI / ROS
-
Chief Complaint:
LYNDA, hematuria
History of Present Illness:
R foot infection s/p R foot I&D with partial amputation of digit
LYNDA better cr at 1.6
BP stable
microscopic hematuria
Review of Systems:
no cp or sob
no fever
Labs
-
Labs:
WBC 11.7 10^3/uL (4.8-10.8) H 11/21/23 07:55
RBC 4.00 10^6/uL (4.70-6.10) L 11/21/23 07:55
Hgb 10.6 g/dL (13.0-18.0) L 11/21/23 07:55
Hct 32.8 % (39.0-52.0) L 11/21/23 07:55
Plt Count 479 10^3/uL (130-400) H 11/21/23 07:55
Sodium 138 mmol/L (135-145) 11/22/23 04:57
Potassium 4.0 mmol/L (3.5-5.1) 11/22/23 04:57
Chloride 99 mmol/L (98-107) 11/22/23 04:57
Carbon Dioxide 30 mmol/L (22-30) 11/22/23 04:57
BUN 19 mg/dl (9-20) 11/22/23 04:57
Creatinine 1.6 mg/dL (0.7-1.3) H 11/22/23 04:57
eGFR 51.20 11/22/23 04:57
Glucose 78 mg/dl (70-99) 11/22/23 04:57
Calcium 9.8 mg/dl (8.4-10.2) 11/22/23 04:57
Albumin 4.0 g/dl (3.5-5.0) 11/13/23 07:21
Physical Exam
-
Vital Signs:
Vital Signs
Temp Pulse Resp BP Pulse Ox
98.1 F 82 18 128/82 96
11/22/23 15:00 11/22/23 15:00 11/22/23 15:00 11/22/23 15:00 11/22/23 15:00
Cardiovascular:: Regular rate and rhythm
Respiratory:: Bilateral: CTA
Lung Excursion:: Normal
Abdomen:: Nontender and Soft
Extremity Edema:: None: Bilateral:
Dixon Catheter: No
--- NOTE | 2023-11-22 16:11 | W.DCSUMMARY ---
Discharge Summary
Discharge Data
Date of Admission: 11/13/23
Date of Discharge: 11/22/23
-
Pending Results: No
Hospital Course
Discharging Physician : Dr. Selina Ortiz
Disposition : Home
Primary care physician :
Principal Discharge diagnosis :
1. 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
recommendation
2.Right second toe osteomyelitis status post surgery and podiatry need for the surgery as an outpatient.
3. Diabetes mellitus
4. Acute kidney injury postoperatively. Improving., Need outpatient regular electrolyte and renal function monitoring especially with a long-term antibiotic.
5. Hypertension, pressure under good range without lisinopril
History of present illness:
Patient with a longstanding history of diabetes and prior right big toe amputation from diabetic foot infection presents again with right foot infection.
He has had right foot wound on the plantar aspect for some time/few months but has not been able to get care because of loss of job and insurance. Last Monday he realized he was in trouble with the right foot. He started to have swelling, some
pain now [he has neuropathy and not much pain sensation in both feet]. He also started to have fever and chills with soaking sweats last week. He started to have drainage from his right leg which was odorous.
With the loss of job and insurance he was sparingly using insulin. He was rationing his insulin to last longer . He takes Levemir 40 units twice a day and NovoLog 20 units twice a day.
Hospital Course :
So patient admitted with concern of the diabetic right foot infection osteomyelitis.
Given broad-spectrum antibiotic, infectious disease and podiatry consulted.
Patient taken to the OR and had right foot I&D of the right foot wound with a partial second ray amputation, antibiotic were continued, wound and blood culture grew Streptococcus angiosus, then antibiotic narrowed down to 2 gram Rocephin daily per
recommendation of the infectious disease until December 25, 2023.
Patient had a wound management regularly.
Had a second revision surgery.
Sugar was fluctuating and elevated, further adjustment of diabetic medication made including increasing Lantus to 45 while decreasing his NovoLog from 20 to 12 units twice a day with close monitoring of the blood sugar recommended at home.
Also patient noted to be in acute kidney injury his creatinine was 1.9 trended down to 1.6, his lisinopril, metformin and Motrin all put on hold and discontinued during hospitalization and upon discharge.
His blood pressure was a good range without blood pressure medication which needed further monitoring of his blood pressure as an outpatient
Recommended outpatient follow-up with primary care, nephrology and infectious disease as well as podiatry.
Patient's can have visiting nurse for his wound regularly per recommendation of podiatry also his antibiotic and to be given in infusion center on daily basis.
Advised about having a Yogurt daily while on antibiotic and need weekly CBC, CMP, ESR and CRP while on antibiotic
Changes to Home Medications: Yes
Discharge Medications:
DC Medications w/original date entered in [facility]
atorvastatin 20 mg tablet 20 mg PO HS High Cholesterol 11/13/23
therapeutic multivitamin 1 tab PO DAILY Supplement 11/13/23
ceftriaxone 2 gram solution for injection 2,000 mg IV Q24H #33 ea 11/22/23
insulin aspart U-100 100 unit/mL (3 mL) subcutaneous pen (Novolog FlexPen U-100 Insulin aspart) 12 unit (0.12 mL) SC BID Diabetes #0 mL 11/22/23
insulin detemir U-100 100 unit/mL subcutaneous solution (Levemir U-100 Insulin) 45 unit (0.45 mL) SC BID Diabetes #0 mL 11/22/23
Home Medication Changes
Lisinopril, metformin and ibuprofen put on hold
Levemir dose increased from 40-45
NovoLog decreased from 20 to 12 units
Pending Results: No
Additional Pending Results:
Physical exam:
General: Awake, alert and oriented x3, not in distress and holds appropriate conversation.
HEENT: No active discharge, ecchymosis or bruising, moist lips, tongue and mucous membrane.
Eyes: No discharge or red conjunctiva, no nystagmus, pupils are reactive and equal
Neck:Supple, no JVD no bruit no goiter.
Respiratory: Normal AP contour and diameter, normal chest wall movement, normal respiratory effort, no respiratory distress,
Lungs: Good air entry bilaterally, no wheezing or rhonchi, no rales or crackles
Heart: S1, S2 regular, normal rate, no added sound.
Gastrointestinal: Positive bowel sounds, soft, nontender, no guarding or rigidity or organomegaly
Musculoskeletal: Dressing on the right forefoot, no active discharge, no chest wall abnormality or tenderness. All joints and extremities have good range of motion, no muscle tenderness or any joint swelling or tenderness.
Extremities: No pitting edema, good peripheral pulses, good range of motion
Skin: Warm and dry, no ulceration, normal color.
Neurological: Awake, alert and oriented x3, speech clear and comprehensive, good muscle tone, normal sensory and motor function
Psychiatric: Normal mood, normal thought and judgment, normal affect,
Condition on discharge: Awake, alert and oriented x3, answer question properly, able to make own decision and take care of activities of daily living, speech clear and comprehensive, continent of the bowel and bladder, ambulate without television production assistant,
goes home where lives with the family independently.
Discharge Plan
-
Patient Disposition: Home (Routine Discharge)
Discharge Diagnosis/Procedures: Diabetic foot
Condition: Good
Diet: Low Fat, Low Cholesterol, 2 Gram Sodium and Diabetic, Carb Controlled
Activity: As tolerated
Additional Activity: Fall precaution
Other Services: VN
Wound Care: will require visiting nurse- calcium alginate to foot MWF with kerlex and DSD.
Activity Restrictions/Additional Instructions:
-Since has not achieved surgical cure, need 6 weeks of IV abx.
- Continue ceftriaxone 2g IV q24 through 12/25/23
-Needs weekly CBC, BMP, CRP and ESR as long as he is on antibiotic.
-Antibiotic may cause diarrhea if not going away on the fever or abdominal pain need to come back to the hospital.
After
-Half a cup of yogurt daily while on antibiotic.
-Lisinopril metformin and ibuprofen alternately because of the kidney function.
Some adjustment of the Levemir made dose increased from 40-45 while insulin with meal decreased from 28-12
-Monitor blood sugar closely diary, call primary care if sugar consistently above 140 40 or below 80.
Referrals:
Carine Mcpherson DPM [Active] - in one week
NONE,* [Family Provider] -
Gabby Gonzáles MD [Active] - in two to three weeks
Rose Marie España MD [Active] - in one to two weeks
Prescriptions:
New
ceftriaxone 2 gram Recon Soln
2,000 mg IV Q24H Qty: 33 0RF
Continued
atorvastatin 20 mg Tablet
20 mg PO HS
Patient Comments:
11/13/2023, last filled on 05/09/2023 for 90-day supply.
therapeutic multivitamin Tablet
1 tab PO DAILY
Changed
insulin aspart U-100 [Novolog FlexPen U-100 Insulin] 100 unit/mL (3 mL) Insulin Pen
12 unit SC BID Qty: 0 0RF
Patient Comments:
11/13/2023, [facility] records are from 06/30/2022 and this med. is not in pharmacy fill data.
Levemir U-100 Insulin 100 unit/mL Solution
45 unit SC BID Qty: 0 0RF
Discontinued
metformin 1,000 mg Tablet
1,000 mg PO BID
Patient Comments:
11/13/2023, last filled on 05/03/2023 for 90-day supply.
ibuprofen [Advil] 200 mg Tablet
600 mg PO DAILYPRN PRN (Reason: mild pain)
lisinopril 5 mg Tablet
5 mg PO DAILY
Patient Comments:
11/13/2023, last filled on 05/03/2023 for 90-day supply.
Discharge Orders:
Discharge Patient (As Directed); Ordered 11/22/23
Ordered By: Selina Ortiz
Discharge Date and Time
Print Language: ESTONIAN
[2023-11-22] MEDS: FLUZONE QUAD 2023-2024 SYRINGE 0.5 ML IM (16:13)
[2023-11-23 07:22] LABS: ANA, IgG Reflex to HEp-2 None Detected (None Detected)
[2023-11-23 07:30] LABS: Glomerular Base Membrane Ab 1 AU/mL (0-19); Myeloperoxidase Antibody 0 AU/mL (0-19); Serine Protease-3, IgG 0 AU/mL (0-19)
[2023-11-23 23:44] LABS: Albumin 3.13 g/dL (3.75-5.01); Alpha 1 Globulin 0.49 g/dL (0.19-0.46); Alpha 2 Globulin 1.83 g/dL (0.48-1.05); SPEP IFE Reflex Not Done; Total Protein-Electrophoresis 7.9 g/dL (6.3-8.2)
== END 2023-11-22 17:18 | disposition home health service (06) | DRG 854 ==
LOC: 4 WEST ACU 13:20
PROVIDERS: Emergency Medicine; Physician Assistant Medical; Student in an Organized Health Care Education/Training Program; ADMITTING PHYSICIAN Internal Medicine; ATTENDING PHYSICIAN Internal Medicine; CONSULT PHYSICIAN Internal Medicine; CONSULT PHYSICIAN Internal Medicine Infectious Disease; CONSULT PHYSICIAN Podiatrist; EMERGENCY PHYSICIAN Emergency Medicine
PROC: 02HV33Z Insertion of Infusion Device into Superior Vena Cava, Percutaneous Approach (ICD-10-PCS; 2023-11-15)
PROC: 0Y9M0ZZ Drainage of Right Foot, Open Approach (ICD-10-PCS; 2023-11-15)
PROC: 0Y6M0ZB Detachment at Right Foot, Partial 2nd Ray, Open Approach (ICD-10-PCS; 2023-11-15)
DX: A41.9 Sepsis, unspecified organism (principal); E87.1 Hypo-osmolality and hyponatremia; M86.9 Osteomyelitis, unspecified; N17.9 Acute kidney failure, unspecified; L02.611 Cutaneous abscess of right foot; E11.621 Type 2 diabetes mellitus with foot ulcer; E11.65 Type 2 diabetes mellitus with hyperglycemia; Z91.148 Patient's other noncompliance with medication regimen for other reason; E11.69 Type 2 diabetes mellitus with other specified complication; L97.509 Non-pressure chronic ulcer of other part of unspecified foot with unspecified severity; E11.41 Type 2 diabetes mellitus with diabetic mononeuropathy; G57.90 Unspecified mononeuropathy of unspecified lower limb; E11.628 Type 2 diabetes mellitus with other skin complications; E78.00 Pure hypercholesterolemia, unspecified; I10 Essential (primary) hypertension; B95.4 Other streptococcus as the cause of diseases classified elsewhere
CPT/HCPCS: 88304; 88305; 88311; 71045; 73630; 73720; 76770; 80048; 80053; 80202; 81003; 81015; 81099; 82570; 82947; 82962; 83036; 83516; 83605; 83935; 84155; 84156; 84165; 84300; 85025; 85027; 85652; 86038; 86140; 86160; 87040; 87070; 87075; 87076; 87077; 87147; 87149; 87176; 87186; 87205; 90686; 93005; 93922; 93925; 96361; 96372; 96374; 96375; 97116; 97162; 99285; G0008

== ENCOUNTER 2023-12-12 13:39 | Outpatient (RCR) | payer OTHER, SELFPAY ==
[2023-11-23 11:10] VITALS: BP 114/73
[2023-11-23] MEDS: ROCEPHIN 70 MG IV (11:21)
[2023-11-24] MEDS: ROCEPHIN 70 MG IV (11:37)
[2023-11-25 08:15] VITALS: BP 147/87
[2023-11-25] MEDS: ROCEPHIN 70 MG IV (08:31)
[2023-11-26 07:56] VITALS: BP 140/91
[2023-11-26] MEDS: ROCEPHIN 70 MG IV (07:56)
[2023-11-27 10:05] VITALS: BP 138/84
[2023-11-27] MEDS: ROCEPHIN 70 MG IV (10:11)
[2023-11-27 10:54] VITALS: BP 132/83
[2023-11-27 10:56] LABS: % Basophils 1.7 % (0-2); % Eosinophils 6.5 % (0-6); % Immature Granulocytes 0.2 % (0-0.5); % Lymphocytes 23.3 % (20.5-51.1); % Monocytes 5.5 % (1.7-9.3); % Neutrophils 62.8 % (42.2-75.2); Absolute Basophils 0.2 10^3/uL (0-0.2); Absolute Eosinophils 0.6 10^3/uL (0-0.7); Absolute Lymphocytes 2.2 10^3/uL (1.2-3.4); Absolute Monocytes 0.5 10^3/uL (0.1-0.6); Absolute Neutrophils 5.8 10^3/uL (1.4-6.5); Hematocrit 32.2 % (39.0-52.0); Hemoglobin 10.6 g/dL (13.0-18.0); Mean Corp Hgb Conc. 32.9 g/dL (33.0-37.0); Mean Corpuscular Hgb 26.4 pg (27.0-31.0); Mean Corpuscular Volume 80.1 fL (80.0-94.0); Mean Platelet Volume 9.4 fL (7.4-10.4); Nucleated Red Blood Cells % 0 % (-); Platelet Count 575 10^3/uL (130-400); Red Blood Cell Count 4.02 10^6/uL (4.70-6.10); Red Cell Dist. Width 12.7 % (11.5-14.5); White Blood Cell Count 9.2 10^3/uL (4.8-10.8)
[2023-11-27 11:09] LABS: ALT (SGPT) 23 U/L (0-50); AST (SGOT) 27 U/L (17-59); Albumin 4.2 g/dl (3.5-5.0); Alkaline Phosphatase 99 U/L (38-126); Blood Urea Nitrogen 17 mg/dl (9-20); Calcium 9.6 mg/dl (8.4-10.2); Carbon Dioxide 26 mmol/L (22-30); Chloride 103 mmol/L (98-107); Glucose 193 mg/dl (70-99); Potassium 4.5 mmol/L (3.5-5.1); Sodium 138 mmol/L (135-145); Total Bilirubin 0.3 mg/dl (0.2-1.3); Total Protein 7.8 g/dl (6.3-8.2); eGFR > 60.00
[2023-11-28] MEDS: ROCEPHIN 70 MG IV (11:48)
[2023-11-28 11:50] VITALS: BP 121/79
[2023-11-29 11:35] VITALS: BP 145/94
[2023-11-29] MEDS: ROCEPHIN 70 MG IV (11:52)
[2023-11-30 11:40] VITALS: BP 132/89
[2023-11-30] MEDS: ROCEPHIN 70 MG IV (11:52)
[2023-12-01] MEDS: ROCEPHIN 70 MG IV (11:41)
[2023-12-01 11:45] VITALS: BP 137/80
[2023-12-02 08:16] VITALS: BP 130/86
[2023-12-02] MEDS: ROCEPHIN 70 MG IV (08:17)
[2023-12-03 07:54] VITALS: BP 140/95
[2023-12-03] MEDS: ROCEPHIN 70 MG IV (07:57)
[2023-12-04 11:40] VITALS: BP 121/79
[2023-12-04] MEDS: ROCEPHIN 70 MG IV (11:56)
[2023-12-04 12:31] LABS: % Basophils 1.5 % (0-2); % Eosinophils 6.6 % (0-6); % Immature Granulocytes 0.2 % (0-0.5); % Lymphocytes 30.2 % (20.5-51.1); % Neutrophils 54.5 % (42.2-75.2); Absolute Basophils 0.1 10^3/uL (0-0.2); Absolute Eosinophils 0.6 10^3/uL (0-0.7); Absolute Lymphocytes 2.6 10^3/uL (1.2-3.4); Absolute Monocytes 0.6 10^3/uL (0.1-0.6); Absolute Neutrophils 4.7 10^3/uL (1.4-6.5); Hematocrit 29.5 % (39.0-52.0); Hemoglobin 9.8 g/dL (13.0-18.0); Mean Corp Hgb Conc. 33.2 g/dL (33.0-37.0); Mean Corpuscular Hgb 26.3 pg (27.0-31.0); Mean Corpuscular Volume 79.3 fL (80.0-94.0); Mean Platelet Volume 9.2 fL (7.4-10.4); Nucleated Red Blood Cells % 0 % (-); Platelet Count 382 10^3/uL (130-400); Red Blood Cell Count 3.72 10^6/uL (4.70-6.10); Red Cell Dist. Width 13.2 % (11.5-14.5); White Blood Cell Count 8.6 10^3/uL (4.8-10.8)
[2023-12-04 12:45] LABS: ALT (SGPT) 17 U/L (0-50); AST (SGOT) 24 U/L (17-59); Albumin 3.9 g/dl (3.5-5.0); Alkaline Phosphatase 99 U/L (38-126); Blood Urea Nitrogen 26 mg/dl (9-20); Calcium 9.1 mg/dl (8.4-10.2); Carbon Dioxide 25 mmol/L (22-30); Chloride 103 mmol/L (98-107); Glucose 211 mg/dl (70-99); Potassium 4.3 mmol/L (3.5-5.1); Sodium 136 mmol/L (135-145); Total Bilirubin 0.4 mg/dl (0.2-1.3); Total Protein 7.2 g/dl (6.3-8.2); eGFR 55.32
[2023-12-04 12:53] LABS: C-Reactive Protein < 5.00 mg/L (0.0-10.00)
[2023-12-05] MEDS: ROCEPHIN 70 MG IV (14:11)
[2023-12-06 14:01] VITALS: BP 139/79
[2023-12-06] MEDS: ROCEPHIN 70 MG IV (14:03)
[2023-12-07 14:00] VITALS: BP 118/89
[2023-12-07] MEDS: ROCEPHIN 70 MG IV (14:06)
[2023-12-08 13:55] VITALS: BP 121/79
[2023-12-08] MEDS: ROCEPHIN 70 MG IV (14:00)
[2023-12-09 08:05] VITALS: BP 166/98
[2023-12-09] MEDS: ROCEPHIN 70 MG IV (08:10)
[2023-12-10 08:35] VITALS: BP 148/82
[2023-12-10] MEDS: ROCEPHIN 70 MG IV (08:36)
[2023-12-11 14:00] VITALS: BP 113/78
[2023-12-11] MEDS: ROCEPHIN 70 MG IV (14:19)
[2023-12-11 14:28] LABS: % Basophils 1.3 % (0-2); % Eosinophils 5.6 % (0-6); % Immature Granulocytes 0.3 % (0-0.5); % Lymphocytes 30.6 % (20.5-51.1); % Monocytes 9.4 % (1.7-9.3); % Neutrophils 52.8 % (42.2-75.2); Absolute Basophils 0.1 10^3/uL (0-0.2); Absolute Eosinophils 0.4 10^3/uL (0-0.7); Absolute Lymphocytes 2.4 10^3/uL (1.2-3.4); Absolute Monocytes 0.7 10^3/uL (0.1-0.6); Absolute Neutrophils 4.1 10^3/uL (1.4-6.5); Hematocrit 29.6 % (39.0-52.0); Hemoglobin 10.2 g/dL (13.0-18.0); Mean Corp Hgb Conc. 34.5 g/dL (33.0-37.0); Mean Corpuscular Hgb 27.4 pg (27.0-31.0); Mean Corpuscular Volume 79.6 fL (80.0-94.0); Nucleated Red Blood Cells % 0 % (-); Platelet Count 340 10^3/uL (130-400); Red Blood Cell Count 3.72 10^6/uL (4.70-6.10); White Blood Cell Count 7.8 10^3/uL (4.8-10.8)
[2023-12-11 15:01] LABS: ALT (SGPT) 17 U/L (0-50); AST (SGOT) 19 U/L (17-59); Albumin 4.2 g/dl (3.5-5.0); Alkaline Phosphatase 106 U/L (38-126); Blood Urea Nitrogen 23 mg/dl (9-20); Calcium 9.5 mg/dl (8.4-10.2); Carbon Dioxide 25 mmol/L (22-30); Chloride 102 mmol/L (98-107); Glucose 322 mg/dl (70-99); Potassium 4.3 mmol/L (3.5-5.1); Sodium 136 mmol/L (135-145); Total Bilirubin 0.3 mg/dl (0.2-1.3); Total Protein 7.4 g/dl (6.3-8.2); eGFR > 60.00
[2023-12-11 15:05] LABS: C-Reactive Protein < 5.00 mg/L (0.0-10.00)
[2023-12-12] MEDS: ROCEPHIN 70 MG IV (13:57)
[2023-12-12 14:04] VITALS: BP 121/78
== END 2023-12-12 23:59 | disposition home or self-care (01) ==
LOC: OID 13:39
PROVIDERS: ATTENDING PHYSICIAN Internal Medicine Infectious Disease
DX: M86.171 Other acute osteomyelitis, right ankle and foot (principal); B95.4 Other streptococcus as the cause of diseases classified elsewhere
CPT/HCPCS: 36591; 80053; 85025; 86140; 96365

== ENCOUNTER 2023-12-25 13:35 | Outpatient (RCR) | payer OTHER, SELFPAY ==
[2023-12-13 13:45] VITALS: BP 147/85
[2023-12-13] MEDS: ROCEPHIN 70 MG IV (13:58)
[2023-12-14 13:45] VITALS: BP 116/80
[2023-12-14] MEDS: ROCEPHIN 70 MG IV (14:03)
[2023-12-15] MEDS: ROCEPHIN 70 MG IV (14:03)
[2023-12-15 14:28] VITALS: BP 127/95
[2023-12-16 07:58] VITALS: BP 132/87
[2023-12-16] MEDS: ROCEPHIN 70 MG IV (07:58)
[2023-12-17] MEDS: ROCEPHIN 70 MG IV (07:57)
[2023-12-17 08:03] VITALS: BP 141/86
[2023-12-18 13:45] VITALS: BP 134/84
[2023-12-18] MEDS: ROCEPHIN 70 MG IV (13:48)
[2023-12-18 14:04] LABS: % Basophils 1.4 % (0-2); % Eosinophils 5.1 % (0-6); % Immature Granulocytes 0.3 % (0-0.5); % Lymphocytes 25.2 % (20.5-51.1); % Monocytes 8.1 % (1.7-9.3); % Neutrophils 59.9 % (42.2-75.2); Absolute Basophils 0.1 10^3/uL (0-0.2); Absolute Eosinophils 0.5 10^3/uL (0-0.7); Absolute Lymphocytes 2.2 10^3/uL (1.2-3.4); Absolute Monocytes 0.7 10^3/uL (0.1-0.6); Absolute Neutrophils 5.3 10^3/uL (1.4-6.5); Hematocrit 31.3 % (39.0-52.0); Hemoglobin 10.8 g/dL (13.0-18.0); Mean Corp Hgb Conc. 34.5 g/dL (33.0-37.0); Mean Corpuscular Volume 78.3 fL (80.0-94.0); Mean Platelet Volume 8.8 fL (7.4-10.4); Nucleated Red Blood Cells % 0 % (-); Platelet Count 369 10^3/uL (130-400); White Blood Cell Count 8.8 10^3/uL (4.8-10.8)
[2023-12-18 14:20] LABS: ALT (SGPT) 17 U/L (0-50); AST (SGOT) 20 U/L (17-59); Albumin 4.4 g/dl (3.5-5.0); Alkaline Phosphatase 90 U/L (38-126); Blood Urea Nitrogen 27 mg/dl (9-20); Calcium 9.6 mg/dl (8.4-10.2); Carbon Dioxide 26 mmol/L (22-30); Chloride 100 mmol/L (98-107); Glucose 362 mg/dl (70-99); Potassium 4.3 mmol/L (3.5-5.1); Sodium 133 mmol/L (135-145); Total Bilirubin 0.4 mg/dl (0.2-1.3); Total Protein 7.6 g/dl (6.3-8.2); eGFR > 60.00
[2023-12-18 14:23] LABS: C-Reactive Protein < 5.00 mg/L (0.0-10.00)
[2023-12-19 13:53] VITALS: BP 142/88
[2023-12-19] MEDS: ROCEPHIN 70 MG IV (14:05)
[2023-12-20 13:46] VITALS: BP 127/83
[2023-12-20] MEDS: ROCEPHIN 70 MG IV (14:09)
[2023-12-21 13:00] VITALS: BP 132/86
[2023-12-21] MEDS: ROCEPHIN 70 MG IV (13:06)
[2023-12-22 13:54] VITALS: BP 142/83
[2023-12-22] MEDS: ROCEPHIN 70 MG IV (14:04)
[2023-12-23 07:45] VITALS: BP 147/92
[2023-12-23] MEDS: ROCEPHIN 70 MG IV (08:42)
--- NOTE | 2023-12-23 10:48 | EDRN ---
pts came in with PICC line in right arm.
[2023-12-24] MEDS: ROCEPHIN 70 MG IV (08:14)
[2023-12-24 08:20] VITALS: BP 135/92
[2023-12-25] MEDS: ROCEPHIN 70 MG IV (13:55)
[2023-12-25 13:58] VITALS: BP 124/84
[2023-12-25 14:11] LABS: % Basophils 1.6 % (0-2); % Eosinophils 4.8 % (0-6); % Immature Granulocytes 0.1 % (0-0.5); % Lymphocytes 28.2 % (20.5-51.1); % Monocytes 8.1 % (1.7-9.3); % Neutrophils 57.2 % (42.2-75.2); Absolute Basophils 0.1 10^3/uL (0-0.2); Absolute Eosinophils 0.4 10^3/uL (0-0.7); Absolute Lymphocytes 2.4 10^3/uL (1.2-3.4); Absolute Monocytes 0.7 10^3/uL (0.1-0.6); Absolute Neutrophils 4.8 10^3/uL (1.4-6.5); Hematocrit 34.1 % (39.0-52.0); Hemoglobin 11.3 g/dL (13.0-18.0); Mean Corp Hgb Conc. 33.1 g/dL (33.0-37.0); Mean Corpuscular Hgb 26.8 pg (27.0-31.0); Nucleated Red Blood Cells % 0 % (-); Platelet Count 380 10^3/uL (130-400); Red Blood Cell Count 4.21 10^6/uL (4.70-6.10); White Blood Cell Count 8.4 10^3/uL (4.8-10.8)
[2023-12-25 14:28] LABS: ALT (SGPT) 17 U/L (0-50); AST (SGOT) 19 U/L (17-59); Albumin 4.4 g/dl (3.5-5.0); Alkaline Phosphatase 89 U/L (38-126); Blood Urea Nitrogen 30 mg/dl (9-20); Calcium 9.9 mg/dl (8.4-10.2); Carbon Dioxide 27 mmol/L (22-30); Chloride 102 mmol/L (98-107); Glucose 283 mg/dl (70-99); Potassium 4.3 mmol/L (3.5-5.1); Sodium 139 mmol/L (135-145); Total Bilirubin 0.4 mg/dl (0.2-1.3); Total Protein 7.5 g/dl (6.3-8.2); eGFR > 60.00
[2023-12-25 14:36] LABS: C-Reactive Protein < 5.00 mg/L (0.0-10.00)
== END 2023-12-26 09:29 | disposition home or self-care (01) ==
LOC: OID 13:35
PROVIDERS: ATTENDING PHYSICIAN Internal Medicine Infectious Disease
DX: M86.171 Other acute osteomyelitis, right ankle and foot (principal); B95.4 Other streptococcus as the cause of diseases classified elsewhere
CPT/HCPCS: 36589; 36591; 80053; 85025; 86140; 96365

== ENCOUNTER → 2024-09-12 08:07 | Outpatient (REF) | payer OTHER, SELFPAY | LOC: WOUND 08:07 | PROVIDERS: ATTENDING PHYSICIAN Surgery; FAMILY PHYSICIAN Internal Medicine; REFERRING PHYSICIAN Podiatrist | DX: E11.621 Type 2 diabetes mellitus with foot ulcer (principal); L97.512 Non-pressure chronic ulcer of other part of right foot with fat layer exposed; Z79.4 Long term (current) use of insulin | CPT/HCPCS: 11042; 73630; 99204 ==

== ENCOUNTER → 2024-09-19 08:34 | Outpatient (REF) | payer OTHER, SELFPAY | LOC: WOUND 08:34 | PROVIDERS: ATTENDING PHYSICIAN Surgery; FAMILY PHYSICIAN Internal Medicine | DX: E11.621 Type 2 diabetes mellitus with foot ulcer (principal); L97.512 Non-pressure chronic ulcer of other part of right foot with fat layer exposed; Z79.4 Long term (current) use of insulin | CPT/HCPCS: 29445; 99213 ==

== ENCOUNTER → 2024-09-26 08:28 | Outpatient (REF) | payer OTHER, SELFPAY | LOC: WOUND 08:28 | PROVIDERS: ATTENDING PHYSICIAN Surgery; FAMILY PHYSICIAN Internal Medicine | DX: E11.621 Type 2 diabetes mellitus with foot ulcer (principal); L97.512 Non-pressure chronic ulcer of other part of right foot with fat layer exposed; Z79.4 Long term (current) use of insulin | CPT/HCPCS: 29445; 99213 ==

== ENCOUNTER → 2024-10-03 14:07 | Outpatient (REF) | payer OTHER, SELFPAY | LOC: WOUND 14:07 | PROVIDERS: ATTENDING PHYSICIAN Surgery; FAMILY PHYSICIAN Internal Medicine | DX: E11.621 Type 2 diabetes mellitus with foot ulcer (principal); L97.512 Non-pressure chronic ulcer of other part of right foot with fat layer exposed; Z79.4 Long term (current) use of insulin | CPT/HCPCS: 99212 ==

== ENCOUNTER → 2024-10-15 14:44 | Outpatient (REF) | payer OTHER, SELFPAY | LOC: WOUND 14:44 | PROVIDERS: ATTENDING PHYSICIAN Surgery; FAMILY PHYSICIAN Internal Medicine | DX: E11.621 Type 2 diabetes mellitus with foot ulcer (principal); L97.512 Non-pressure chronic ulcer of other part of right foot with fat layer exposed; Z79.4 Long term (current) use of insulin | CPT/HCPCS: 99213 ==

== ENCOUNTER → 2024-10-24 13:57 | Outpatient (REF) | payer OTHER, SELFPAY | LOC: WOUND 13:57 | PROVIDERS: ATTENDING PHYSICIAN Surgery; FAMILY PHYSICIAN Internal Medicine | DX: E11.621 Type 2 diabetes mellitus with foot ulcer (principal); L97.512 Non-pressure chronic ulcer of other part of right foot with fat layer exposed; Z79.4 Long term (current) use of insulin | CPT/HCPCS: 29445; 99213 ==

== ENCOUNTER → 2024-10-31 13:31 | Outpatient (REF) | payer OTHER, SELFPAY | LOC: WOUND 13:31 | PROVIDERS: ATTENDING PHYSICIAN Surgery; FAMILY PHYSICIAN Internal Medicine | DX: E11.621 Type 2 diabetes mellitus with foot ulcer (principal); L97.512 Non-pressure chronic ulcer of other part of right foot with fat layer exposed; Z79.4 Long term (current) use of insulin | CPT/HCPCS: 29445; 99213 ==

== ENCOUNTER → 2024-11-07 14:11 | Outpatient (REF) | payer OTHER, SELFPAY | LOC: WOUND 14:11 | PROVIDERS: ATTENDING PHYSICIAN Surgery; FAMILY PHYSICIAN Internal Medicine | DX: E11.621 Type 2 diabetes mellitus with foot ulcer (principal); L97.512 Non-pressure chronic ulcer of other part of right foot with fat layer exposed; Z79.4 Long term (current) use of insulin | CPT/HCPCS: 29445; 99213 ==

== ENCOUNTER → 2024-11-14 13:38 | Outpatient (REF) | payer OTHER, SELFPAY | LOC: WOUND 13:38 | PROVIDERS: ATTENDING PHYSICIAN Surgery; FAMILY PHYSICIAN Internal Medicine | DX: E11.621 Type 2 diabetes mellitus with foot ulcer (principal); L97.512 Non-pressure chronic ulcer of other part of right foot with fat layer exposed; Z79.4 Long term (current) use of insulin | CPT/HCPCS: 99213 ==